=== PATIENT | female | born 1945 | race Caucasian/White ===

== ENCOUNTER 2020-12-02 06:51 | Outpatient (REF) | payer MEDICARE, SELFPAY ==
[2020-12-02 07:28] LABS: Hematocrit 43.2 % (37-47); Hemoglobin 14.8 g/dl (12.0-16.0); Mean Corpuscular HGB Conc 34.3 g/dl (31.0-35.0); Mean Corpuscular Hemoglobin 33.3 pg (27.0-33.0); Mean Corpuscular Volume 97.1 fL (80-98); Mean Platelet Volume 10.4 fL (9.4-12.3); Platelet Count 238 X10*3/uL (160-400); Red Blood Count 4.45 X10*6/uL (4.20-5.50); Red Cell Distribution Width 12.5 % (11.0-16.0); White Blood Count 5.8 X10*3/uL (4.8-10.8)
[2020-12-02 08:54] LABS: Alanine Aminotransferase 17 U/L (0-31); Albumin Level 4.8 g/dL (3.5-5.0); Alkaline Phosphatase 67 U/L (39-117); Anion Gap 15 (12-20); Aspartate Amino Transferase 23 U/L (5-31); Bilirubin Total 0.6 mg/dL (0.0-1.0); Blood Urea Nitrogen 6 mg/dL (9-16); Calcium 9.3 mg/dL (8.4-10.2); Carbon Dioxide 29 mmol/L (22-29); Chloride 99 mmol/L (96-108); Cholesterol 247 mg/dL; Estimated Glomerular Filt Rate > 60; Glucose Fasting 84 mg/dL (60-99); HDL Cholesterol 101 mg/dL; LDL Cholesterol Calculated 127 mg/dl; Potassium 4.1 mmol/l (3.3-5.1); Sodium 139 mmol/L (135-145); Total Protein 7.1 g/dL (6.5-8.0); Triglycerides 96 mg/dL
[2020-12-02 09:00] LABS: TSH reflex Free T4 3.61 mIU/mL (0.32-4.0)
== END 2020-12-02 06:52 | disposition home or self-care (01) ==
LOC: HO.LAB 06:51
PROVIDERS: Visit Provider Physician Assistant
DX: I10 Essential (primary) hypertension (principal); Z13.29 Encounter for screening for other suspected endocrine disorder; Z13.220 Encounter for screening for lipoid disorders; Z13.1 Encounter for screening for diabetes mellitus
CPT/HCPCS: 36415; 80053; 80061; 84443; 85027

== ENCOUNTER 2020-12-29 08:28 | Outpatient (REF) | payer MEDICARE, SELFPAY ==
--- NOTE | 2020-12-29 | MM_ITS ---
EXAMINATION: MM SCREENING DIGITAL BREAST TOMOSYNTHESIS, BILATERAL CLINICAL INFORMATION: Screening. Asymptomatic. The lifetime risk of breast cancer based on the Tyrer-Cuzick Model is 2.8%. COMPARISON: Mammography: December 26, 2019 and studies dating back to May 21, 2010 TECHNIQUE: Digital breast tomosynthesis is performed in both the craniocaudal and mediolateral oblique views along with computer-aided detection (CAD). Synthesized 2D images are generated from the tomosynthesis. FINDINGS: The breasts are extremely dense, which lowers the sensitivity of mammography (ACR BI-RADS breast composition Category d). There are no significant masses, abnormal calcifications, or other abnormalities. MM/MM tomosynthesis screening BI IMPRESSION: There are no significant changes from prior study. ASSESSMENT: BI-RADS 1: Negative RECOMMENDATION: Routine annual mammography screening. This patient's information was entered into a reminder system with a target due date for their next mammogram.
== END 2020-12-29 08:29 | disposition home or self-care (01) ==
LOC: HO.MAMMO 08:28
PROVIDERS: PCP Physician Assistant; Visit Provider Physician Assistant
DX: Z12.31 Encounter for screening mammogram for malignant neoplasm of breast (principal)
CPT/HCPCS: 77063; 77067

== ENCOUNTER 2021-01-08 06:58 | Outpatient (REF) | payer MEDICARE, SELFPAY ==
[2021-01-08 08:46] LABS: Alanine Aminotransferase 13 U/L (0-31); Albumin Level 4.5 g/dL (3.5-5.0); Alkaline Phosphatase 59 U/L (39-117); Anion Gap 13 (12-20); Aspartate Amino Transferase 18 U/L (5-31); Bilirubin Total 0.9 mg/dL (0.0-1.0); Blood Urea Nitrogen 9 mg/dL (9-16); Calcium 9.3 mg/dL (8.4-10.2); Carbon Dioxide 30 mmol/L (22-29); Chloride 101 mmol/L (96-108); Cholesterol 258 mg/dL; Estimated Glomerular Filt Rate > 60; Glucose Fasting 87 mg/dL (60-99); HDL Cholesterol 87 mg/dL; LDL Cholesterol Calculated 158 mg/dl; Potassium 4.6 mmol/L (3.3-5.1); Sodium 139 mmol/L (135-145); Total Protein 6.6 g/dL (6.5-8.0); Triglycerides 69 mg/dL
== END 2021-01-08 06:59 | disposition home or self-care (01) ==
LOC: HO.LAB 06:58
PROVIDERS: Visit Provider Physician Assistant
DX: E78.5 Hyperlipidemia, unspecified (principal)
CPT/HCPCS: 36415; 80053; 80061

== ENCOUNTER → 2021-01-29 08:56 | Outpatient (REF) | payer MEDICARE, SELFPAY ==
--- NOTE | 2021-01-29 09:01 | CA_ITS ---
Acquisition Time: 2021-01-29 09:13:23 Total Exercise Time: 00:01:23 Test Indications: CP Medications: SEE CHART Protocol: BASIL Max HR: 151 BPM 104% of Pred: 144 BPM Max BP: 164/098 mmHG Max Work Load: 3.4 METS Pt has LBBB at baseline , no EKG for 20 years or so to compare. Pt exercised for 1 min 23 sec and her HR went up to 151, test stopped. Neg. for anginal sx. Will call PCP and recommend Lexiscan, and ECHO. Pt's HR stayed in 100's and 90's will recommend bata-sharyn. Referred By: Sabino Ro Overread By:
== END ==
LOC: HO.CARD 08:56
PROVIDERS: PCP Physician Assistant; Visit Provider Physician Assistant
DX: R07.89 Other chest pain (principal)
CPT/HCPCS: 93016; 93017; 93018

== ENCOUNTER → 2021-02-24 07:45 | Outpatient (REF) | payer MEDICARE, SELFPAY ==
--- NOTE | ~2021-02-24 | NM_ITS ---
Lexiscan Myocardial perfusion study Indication: Abnormal EKG, assess for coronary disease and ischemia Technique: The patient was brought in for a Lexiscan perfusion study on 02/24/2021 and was injected 0.4 mg of Lexiscan intravenously. Within a minute of this injection 25 mCi of sestamibi was given intravenously. Images were obtained using the SPECT gamma camera interlaced with the gating device. Images were obtained in supine position. Resting perfusion study was performed on 02/25/2021. Patient was administered 31 mCi of sestamibi intravenously at rest. Images were then obtained in supine position. Total DLP 66mGy-cm. Images were processed with the software and compared side to side in short axis, horizontal long axis and vertical long axis views. Findings: Raw acquisition was reviewed. The stress perfusion study showed no significant perfusion abnormality. With CT attenuation correction, there is diminished tracer uptake in the distal part of septum that is most likely artifactual. The gated study shows normal LV systolic function with calculated LVEF of 67%. LV cavity is normal in size. The gated study shows possible mild septal dyskinesis from left bundle branch block, but otherwise unremarkable. Resting study shows diminished tracer uptake in the mid to distal anterior septum. With CT attenuation correction, there is diminished uptake towards mid to distal septum and adjacent anterior septum possibly artifactual versus related to left bundle branch block. Gating at rest reveals ejection fraction at 67%. The findings are consistent with normal myocardial perfusion. NM/NM jun perf SPECT rest & str Impression: 1. Myocardial perfusion imaging study shows normal myocardial perfusion. No evidence of any ischemia or infarction. 2. Gated LVEF is 67% during stress and rest. 3. Transient ischemic dilatation not present. EKG component of the test reported separately.
--- NOTE | 2021-02-24 07:48 | CA_ITS ---
Acquisition Time: 2021-02-24 08:11:19 Total Exercise Time: 00:02:00 Test Indications: Abnormal ECG Medications: AMLODIPINE VIT D ZETIA SIMVASTATIN Protocol: LEXISCAN Max HR: 133 BPM 92% of Pred: 144 BPM Max BP: 152/082 mmHG Max Work Load: 1.0 METS Pharmacological stress test using Lexiscan while lying down. Pt tolerated well, HR up and staying up, reversed with Aminophyline 75 mg IV. EKG with LBBB no arrhythmias. non-diagnostic for ischemia. Nuclear images to follow. Normotensive response to test. Test reviewed with Dr. Schneider. Referred By: Sabino Ro Overread By: Cherie Contreras NP
== END ==
LOC: HO.CARD 07:45
PROVIDERS: Visit Provider Physician Assistant
DX: R94.39 Abnormal result of other cardiovascular function study (principal); R07.9 Chest pain, unspecified; I44.7 Left bundle-branch block, unspecified
CPT/HCPCS: 78452; 93017; A9500; J0280; J2785

== ENCOUNTER → 2021-03-24 08:44 | Outpatient (BNVA) | payer MEDICARE, SELFPAY | PROVIDERS: PCP Physician Assistant; Visit Provider Internal Medicine | DX: I44.7 Left bundle-branch block, unspecified (principal); I10 Essential (primary) hypertension; R00.0 Tachycardia, unspecified | CPT/HCPCS: 93005; 99202 ==

== ENCOUNTER → 2021-04-06 10:00 | Outpatient (REF) | payer MEDICARE, SELFPAY ==
--- NOTE | 2021-04-06 15:30 | ECG_ITS ---
Hook-up date: 2021-04-06 10:47:00 Duration: 26:26:00 Test Indications: UNSPEC. TACHYCARDIA Medications: 428861 QRS complexes 2 Ventricular ectopics which represent <1 % of total QRS comp. 47 Supraventricular ectopics which represent <1 % of total QRS comp. * Paced QRS complexs which represent % of total QRS comp. VENTRICULAR ECTOPY 2 Isolated 0 Bigeminal Cycles 0 Couplets 0 Runs 0 Beats in Runs * Beats LONGEST at * BPM at :: -- * Beats FASTEST at * BPM at :: -- SUPRAVENTRICULAR ECTOPY 27 Isolated 0 Couplets 3 Runs 20 Beats in Runs 10 Beats LONGEST at 158 BPM at 18:34:42 2021-04-06 7 Beats FASTEST at 175 BPM at 22:54:56 2021-04-06 HEART RATES 66 MIN at 05:53:36 2021-04-07 87 AVG 138 MAX at 16:33:00 2021-04-06 LONGEST RR 0.9520 secs at 05:53:34 2021-04-07 S-T LEVELS Channel 1 - 128 mm at 10:47:00 2021-04-06 - 128 mm at 10:47:00 2021-04-06 Channel 2 - 128 mm at 10:47:00 2021-04-06 - 128 mm at 10:47:00 2021-04-06 Channel 3 - 128 mm at 03:00:61 -- - 128 mm at 03:00:61 Basic rhythm Normal sinus rhythm No long pause or profound bradycardia Baseline BBB Rare Premature atrial complexes 2 shirt runs of SVT, 7 and 10 beats. No diary submitted Referred By: Johnathan Schneider Overread By: LAWRENCE RODRIGES MD
== END ==
LOC: HO.CARD 10:00
PROVIDERS: PCP Physician Assistant; Visit Provider Internal Medicine
DX: R00.0 Tachycardia, unspecified (principal)
CPT/HCPCS: 93226

== ENCOUNTER → 2021-05-12 13:42 | Outpatient (REF) | payer MEDICARE, SELFPAY ==
--- NOTE | 2021-05-12 13:45 | CA_ITS ---
Transthoracic Echocardiogram Patient (Last, First, Middle): Antonieta Ulrich Jo Gender: Female Date of : 1945 Age: 75 Procedure Date: 05/12/2021 Procedure Type: Transthoracic Echocardiogram Location: OP Height: 160.02 cm Weight: 65.32 kg BSA: 1.68 m2 Heart Rate: bpm BP: 137 / 70 mmHg Shaper Operator: DSG Referring MD: Johnathan Schneider MD Symptoms: I44.7 - Left bundle-branch block, unspecified Study Quality: Fair ECG Rhythm: Sinus Conclusions: - The left ventricular systolic function is mildly decreased. The visually estimated ejection fraction is between 45-50%. - There is mild calcification of the aortic valve. - There is mild mitral annular calcification. - There is mild tricuspid valve regurgitation. Findings Left Ventricle Normal left ventricular cavity size. The left ventricular systolic function is mildly decreased. The visually estimated ejection fraction is between 45 50%. There is paradoxical septal motion consistent with a left bundle branch block. E/E prime ratio is between 8 and 15 consistent with indeterminate filling pressures. Evidence suggests grade I (mild) diastolic dysfunction. Right Ventricle Normal right ventricular cavity size and systolic function. Atria Both atria are normal in size. Aortic Valve There is a normal trileaflet aortic valve. There is mild calcification of the aortic valve. There is no aortic valve stenosis. There is no aortic valve regurgitation. Mitral Valve There is mild mitral annular calcification. There is trace mitral valve regurgitation. There is no mitral valve stenosis. Pulmonic Valve The pulmonic valve was not well visualized. Tricuspid Valve Normal tricuspid valve structure. There is mild tricuspid valve regurgitation. The pulmonary artery systolic pressure is normal. Great Vessels The asc aorta is normal in size. Venous The inferior vena cava is normal in size and collapses greater than 50% with inspiration. Pericardium/Pleural There is no evidence of pericardial effusion. Prior Study Comparison No significant change compared to prior study dated: 09/06/2005. Slight decrease in LVEF. Measurements 2D Linear Measurements IVSd: 1.07 0.6-0.9/0.6-1.0 cm LVIDd: 4.78 3.9-5.3/4.2-5.9 cm LVIDd Index: 2.85 2.4-3.2/2.2-3.1 cm/m2 LVIDs: 3.33 2.0-3.6 cm LVPWd: 0.99 0.7-1.1 cm Ao Root: 2.90 2.1-3.5 cm LA Diam: 3.40 2.7-3.8/3.0-4.0 cm LAIDs Index: 2.02 1.5-2.3 cm/m2 LV Mass: 219.23 67-162/88-224 g LV Mass Index: 130.49 43-95/49-115 g/m2 LVOT Diam: 2.00 3.0+(-)1.3 cm 2D Systolic Function EF 4C: 59.00 >55% EF 2C: 52.70 >55% Mitral Valve MV Pk E: 0.69 MV PK A: 1.07 MV Decel Time: 173.00 E/A: 0.60 E'Lateral: 5.66 E'Medial: 4.24 E/E' Med: 16.20 E/E' Lat: 12.10 PHT: 51.00 MVA PHT: 4.31 Decel [place]: 3.96 Aortic Valve AoV Pk Eulalio: 1.18 AoV Pk Grad: 6.00 LVOT LVOT Pk Eulalio: 0.91 LVOT Mn Eulalio: 0.59 LVOT VTI: 0.19 LVOT Pk Grad: 3.00 LVOT Mn Grad: 2.00 LVOT Diam: 2.00 LVOT Area: 3.14 Diastolic Function MV Pk E: 0.69 MV Pk A: 1.07 E/A: 0.60 E'Medial: 4.24 E/E' Med: 16.20 E' Laterial: 5.66 E/E' Lat: 12.10 Tricuspid Valve TR Pk Eulalio: 2.33 TR Pk Grad: 22.00 RA Press: 3.00 RVSP: 25.00 Great Vessels Aorta Ao Root-2D: 2.90 2.0-3.7 cm Ao Asc: 3.50 2.1-3.4 cm Updated in Other Vendor System with Status of Final Johnathan Schneider MD electronically signed on 05/13/2021 4:37:15 PM with status of Final
== END ==
LOC: HO.CARD 13:42
PROVIDERS: Visit Provider Internal Medicine
DX: I44.7 Left bundle-branch block, unspecified (principal)
CPT/HCPCS: 93306

== ENCOUNTER → 2021-05-18 10:36 | Outpatient (BNVA) | payer MEDICARE, SELFPAY | PROVIDERS: PCP Physician Assistant; Referring Provider Physician Assistant; Visit Provider Internal Medicine | DX: I44.7 Left bundle-branch block, unspecified (principal); I42.8 Other cardiomyopathies; I10 Essential (primary) hypertension; R00.0 Tachycardia, unspecified | CPT/HCPCS: 99212 ==

== ENCOUNTER 2021-07-21 06:33 | Outpatient (REF) | payer MEDICARE, SELFPAY ==
[2021-07-21 08:25] LABS: Alanine Aminotransferase 25 U/L (0-31); Albumin Level 4.5 g/dL (3.5-5.0); Alkaline Phosphatase 65 U/L (39-117); Anion Gap 15 (12-20); Aspartate Amino Transferase 26 U/L (5-31); Bilirubin Total 0.7 mg/dL (0.0-1.0); Blood Urea Nitrogen 5 mg/dL (9-16); Calcium 9.1 mg/dL (8.4-10.2); Carbon Dioxide 26 mmol/L (22-29); Chloride 103 mmol/L (96-108); Cholesterol 156 mg/dL; Estimated Glomerular Filt Rate > 60; Glucose Fasting 87 mg/dL (60-99); HDL Cholesterol 81 mg/dL; LDL Cholesterol Calculated 65 mg/dl; Potassium 4.4 mmol/L (3.3-5.1); Sodium 140 mmol/L (135-145); Total Protein 6.6 g/dL (6.5-8.0); Triglycerides 53 mg/dL
[2021-07-21 09:39] LABS: Creatinine Urine 65.36 mg/dL
== END 2021-07-21 06:34 | disposition home or self-care (01) ==
LOC: HO.LAB 06:33
PROVIDERS: PCP Physician Assistant; Visit Provider Physician Assistant
DX: I10 Essential (primary) hypertension (principal)
CPT/HCPCS: 36415; 80053; 80061; 82043; 84443

== ENCOUNTER 2021-12-02 06:47 | Outpatient (REF) | payer MEDICARE, SELFPAY ==
[2021-12-02 07:56] LABS: Hematocrit 41.7 % (37.0-47.0); Hemoglobin 14.3 g/dl (12.0-16.0); Mean Corpuscular HGB Conc 34.3 g/dl (31.0-35.0); Mean Corpuscular Hemoglobin 33.5 pg (27.0-33.0); Mean Corpuscular Volume 97.7 fL (80.0-98.0); Mean Platelet Volume 10.1 fL (9.4-12.3); Platelet Count 223 X10*3/uL (160-400); Red Blood Count 4.27 X10*6/uL (4.20-5.50); Red Cell Distribution Width 12.8 % (11.0-16.0); White Blood Count 5.5 X10*3/uL (4.8-10.8)
[2021-12-02 08:15] LABS: Alanine Aminotransferase 19 U/L (0-31); Albumin Level 4.7 g/dL (3.5-5.0); Alkaline Phosphatase 63 U/L (39-117); Anion Gap 13 (12-20); Aspartate Amino Transferase 20 U/L (5-31); Bilirubin Total 0.7 mg/dL (0.0-1.0); Blood Urea Nitrogen 9 mg/dL (9-16); Calcium 9.7 mg/dL (8.4-10.2); Carbon Dioxide 29 mmol/L (22-29); Chloride 101 mmol/L (96-108); Cholesterol 199 mg/dL; Estimated Glomerular Filt Rate > 60; Glucose Fasting 82 mg/dL (60-99); HDL Cholesterol 101 mg/dL; LDL Cholesterol Calculated 87 mg/dl; Sodium 138 mmol/L (135-145); Total Protein 6.9 g/dL (6.5-8.0); Triglycerides 58 mg/dL
[2021-12-02 08:36] LABS: TSH reflex Free T4 3.63 uIU/mL (0.32-4.0)
[2021-12-02 09:05] LABS: Creatinine Urine 41.16 mg/dL; Microalbumin Urine < 5.0 mg/L
== END 2021-12-02 06:48 | disposition home or self-care (01) ==
LOC: HO.LAB 06:47
PROVIDERS: PCP Physician Assistant; Visit Provider Physician Assistant
DX: I10 Essential (primary) hypertension (principal); E78.2 Mixed hyperlipidemia; Z13.29 Encounter for screening for other suspected endocrine disorder; Z13.220 Encounter for screening for lipoid disorders; Z13.1 Encounter for screening for diabetes mellitus
CPT/HCPCS: 36415; 80053; 80061; 82043; 84443; 85027

== ENCOUNTER 2022-01-06 09:36 | Outpatient (REF) | payer MEDICARE, SELFPAY ==
--- NOTE | ~2022-01-06 | MM_ITS ---
EXAMINATION: MM SCREENING DIGITAL BREAST TOMOSYNTHESIS, BILATERAL CLINICAL INFORMATION: Screening. Asymptomatic. The lifetime risk of breast cancer based on the Tyrer-Cuzick Model is 3%. COMPARISON: Mammography: 12/29/2020, 12/26/2019, 01/10/2018 TECHNIQUE: Digital breast tomosynthesis is performed in both the craniocaudal and mediolateral oblique views along with computer-aided detection (CAD). Synthesized 2D images are generated from the tomosynthesis. FINDINGS: The breasts are heterogeneously dense, which may obscure small masses (ACR BI-RADS breast composition Category c). There are no significant masses, abnormal calcifications, or other abnormalities. There is no developing density or architectural abnormality. There is fibronodular parenchymal pattern similar to prior studies. The axilla and skin contours are unremarkable. No significant changes. MM/MM tomosynthesis screening BI IMPRESSION: No mammographic evidence of malignancy. ASSESSMENT: BI-RADS 1: Negative RECOMMENDATION: Routine annual mammography screening. This patient's information was entered into a reminder system with a target due date for their next mammogram.
== END 2022-01-06 09:37 | disposition home or self-care (01) ==
LOC: HO.MAMMO 09:36
PROVIDERS: Visit Provider Physician Assistant
DX: Z12.31 Encounter for screening mammogram for malignant neoplasm of breast (principal)
CPT/HCPCS: 77063; 77067

== ENCOUNTER → 2022-04-28 09:05 | Outpatient (REF) | payer MEDICARE, SELFPAY ==
--- NOTE | 2022-04-28 09:10 | CA_ITS ---
Transthoracic Echocardiogram Patient (Last, First, Middle): Antonieta Ulrich Jo Gender: Female Date of : 1945 Age: 76 Procedure Date: 04/28/2022 Procedure Type: Transthoracic Echocardiogram Location: OP Height: 160.02 cm Weight: 65.77 kg BSA: 1.69 m2 Heart Rate: 84 bpm BP: 132 / 70 mmHg Combination Window Installer: SB Referring MD: Johnathan Schneider MD Client Support Associate: Adrian Kurtz MD Symptoms: I42.8 - Other cardiomyopathies Study Quality: Fair/Contrast ECG Rhythm: Sinus Conclusions: - 1. Low normal LV systolic function with impaired relaxation filling pattern 2. Normal cardiac valvular Dopplers 3. No gross pericardial effusion Findings Procedure Information Contrast agent, definity, is being given per protocol without apparent complications. Left Ventricle Normal left ventricular cavity size. There is normal left ventricular wall thickness. The left ventricular systolic function is low normal. The visually estimated ejection fraction is between 50-55%. There is paradoxical septal motion consistent with a left bundle branch block. Spectral Doppler is indicative of an impaired relaxation filling pattern. E/E prime ratio is between 8 and 15 consistent with indeterminate filling pressures. Wall Motion Rest Echo Findings The basal inferior and basal inferoseptal segments are hypokinetic. All other scored wall segments showed normal motion. Right Ventricle Normal right ventricular cavity size and systolic function. Atria The left atrium is normal in size. Interatrial shunt cannot be excluded. The right atrium is normal in size. Aortic Valve There is mild calcification of the aortic valve. There is mild thickening of the aortic valve. There is no aortic valve stenosis. There is no aortic valve regurgitation. Mitral Valve There is mild anterior and posterior mitral leaflet thickening. There is mild mitral annular calcification. There is trace mitral valve regurgitation. There is no mitral valve stenosis. Pulmonic Valve The pulmonic valve was not well visualized. Tricuspid Valve Likely normal tricuspid valve structure and function. Tricuspid regurgitation envelope is inadequate for calculation of right ventricular systolic pressure. Normal right atrial pressure. Great Vessels All visible segments of the aorta are normal in size. The pulmonary artery was not well visualized. Venous The inferior vena cava is normal in size and collapses greater than 50% with inspiration. Pericardium/Pleural There is no evidence of pericardial effusion. Prior Study Comparison Changes noted compared to prior study dated: 05/12/2021. LV systolic function has marginally improved Measurements 2D Linear Measurements IVSd: 1.12 0.6-0.9/0.6-1.0 cm LVIDd: 4.99 3.9-5.3/4.2-5.9 cm LVIDd Index: 2.95 2.4-3.2/2.2-3.1 cm/m2 LVIDs: 3.27 2.0-3.6 cm LVPWd: 0.67 0.7-1.1 cm LA Diam: 3.00 2.7-3.8/3.0-4.0 cm LAIDs Index: 1.78 1.5-2.3 cm/m2 LV Mass: 194.77 67-162/88-224 g LV Mass Index: 115.25 43-95/49-115 g/m2 LVOT Diam: 2.00 3.0+(-)1.3 cm 2D Systolic Function EF 4C: 50.20 >55% EF 2C: 56.60 >55% Mitral Valve MV Pk E: 0.66 MV PK A: 1.25 MV Decel Time: 102.00 E/A: 0.50 E'Medial: 3.70 E/E' Med: 17.90 PHT: 30.00 MVA PHT: 7.33 Decel [place]: 6.47 Aortic Valve AoV Pk Eulalio: 1.03 AoV Mn Eulalio: 0.79 AoV VTI: 0.21 AoV Pk Grad: 4.00 Aov Mn Grad: 3.00 KEI Cont.VTI: 2.68 LVOT LVOT Pk Eulalio: 0.92 LVOT Mn Eulalio: 0.69 LVOT VTI: 0.18 LVOT Pk Grad: 3.00 LVOT Mn Grad: 2.00 LVOT Diam: 2.00 LVOT Area: 3.14 Diastolic Function MV Pk E: 0.66 MV Pk A: 1.25 E/A: 0.50 E'Medial: 3.70 E/E' Med: 17.90 Right Ventricle TAPSE (mm): 18.30 TVS' Eulalio: 13.50 Tricuspid Valve RA Press: 3.00 Great Vessels Aorta Sinus of Valsalva: 3.16 2.0-3.[address] Ridge: 2.86 1.7-3.4 cm Ao Asc: 3.50 2.1-3.4 cm Ao Arch: 2.70 Pulmonary Valve PV Pk Eulalio: 1.07 Peak PV Grad: 5.00 Updated in Other Vendor System with Status of Final Adrian Kurtz MD electronically signed on 04/29/2022 4:10:07 PM with status of Final
== END ==
LOC: HO.CARD 09:05
PROVIDERS: PCP Physician Assistant; Visit Provider Internal Medicine
DX: I42.8 Other cardiomyopathies (principal)
CPT/HCPCS: 93306; Q9957

== ENCOUNTER → 2022-05-13 09:12 | Outpatient (BNVA) | payer MEDICARE, SELFPAY | PROVIDERS: PCP Physician Assistant; Referring Provider Physician Assistant; Visit Provider Internal Medicine | DX: I44.7 Left bundle-branch block, unspecified (principal); I42.8 Other cardiomyopathies; I10 Essential (primary) hypertension; R00.0 Tachycardia, unspecified; F10.10 Alcohol abuse, uncomplicated; Z79.899 Other long term (current) drug therapy | CPT/HCPCS: 93005; 99212 ==

== ENCOUNTER 2022-12-13 06:59 | Outpatient (REF) | payer MEDICARE, SELFPAY ==
[2022-12-13 07:12] LABS: MANUAL DIFF FLAG NO
[2022-12-13 08:26] LABS: Basophils Percent Auto 0.7 % (0-2); Eosinophils Absolute Auto 0.1 X10*3/uL (0.0-0.4); Eosinophils Percent Auto 2.2 % (0-4); Hematocrit 43.1 % (37.0-47.0); Hemoglobin 14.7 g/dl (12.0-16.0); Imm Gran Abs Auto 0.01 X10*3/uL (0.00-0.03); Imm Gran Pct Auto 0.2 % (0.0-0.4); Lymphocytes Absolute Auto 1.8 X10*3/uL (1.2-4.9); Lymphocytes Percent Auto 31.7 % (20-40); Mean Corpuscular HGB Conc 34.1 g/dl (31.0-35.0); Mean Corpuscular Hemoglobin 33.3 pg (27.0-33.0); Mean Corpuscular Volume 97.7 fL (80.0-98.0); Mean Platelet Volume 10.4 fL (9.4-12.3); Monocytes Absolute Auto 0.5 X10*3/uL (0.1-1.2); Monocytes Percent Auto 9.7 % (2-11); Neutrophils Absolute Auto 3.1 x10*3/uL (2.0-8.3); Neutrophils Percent Auto 55.5 % (45-73); Platelet Count 210 X10*3/uL (160-400); Red Blood Count 4.41 X10*6/uL (4.20-5.50); Red Cell Distribution Width 12.6 % (11.0-16.0); White Blood Count 5.6 X10*3/uL (4.8-10.8)
[2022-12-13 08:46] LABS: Alanine Aminotransferase 18 U/L (0-31); Albumin Level 4.5 g/dL (3.5-5.0); Alkaline Phosphatase 68 U/L (39-117); Anion Gap 15 (12-20); Aspartate Amino Transferase 22 U/L (5-31); Blood Urea Nitrogen 9 mg/dL (9-16); Calcium 9.5 mg/dL (8.4-10.2); Carbon Dioxide 26 mmol/L (22-29); Chloride 103 mmol/L (96-108); Cholesterol 192 mg/dL; Estimated Glomerular Filt Rate > 60; Glucose Fasting 84 mg/dL (60-99); HDL Cholesterol 79 mg/dL; LDL Cholesterol Calculated 100 mg/dl; Potassium 4.3 mmol/L (3.3-5.1); Sodium 140 mmol/L (135-145); Total Protein 6.6 g/dL (6.5-8.0); Triglycerides 69 mg/dL
[2022-12-13 09:08] LABS: TSH reflex Free T4 3.98 uIU/mL (0.32-4.0); Vitamin D 25-OH Total 49.7 ng/mL (>30)
[2022-12-13 09:13] LABS: Folate 12.5 ng/mL (> or = 4.0); Vitamin B12 1146 pg/mL (200-900)
== END 2022-12-13 07:00 | disposition home or self-care (01) ==
LOC: HO.LAB 06:59
PROVIDERS: PCP Physician Assistant; Visit Provider Nurse Practitioner Family
DX: Z13.29 Encounter for screening for other suspected endocrine disorder (principal); I10 Essential (primary) hypertension; E78.5 Hyperlipidemia, unspecified
CPT/HCPCS: 36415; 80053; 80061; 82306; 82607; 82746; 84443; 85025

== ENCOUNTER 2023-01-12 08:55 | Outpatient (REF) | payer MEDICARE, SELFPAY ==
--- NOTE | ~2023-01-12 | MM_ITS ---
EXAMINATION: MM SCREENING DIGITAL BREAST TOMOSYNTHESIS, BILATERAL CLINICAL INFORMATION: Screening. Asymptomatic. The lifetime risk of breast cancer based on the Tyrer-Cuzick Model is 3%. COMPARISON: Mammography: 01/06/2022, 12/29/2020, 12/26/2019 TECHNIQUE: Digital breast tomosynthesis is performed in both the craniocaudal and mediolateral oblique views along with computer-aided detection (CAD). Synthesized 2D images are generated from the tomosynthesis. FINDINGS: The breasts are heterogeneously dense, which may obscure small masses (ACR BI-RADS breast composition Category c). There is a fibronodular parenchymal pattern similar to prior studies. No developing density or interval architectural abnormality or abnormal calcifications. There are some incidental low lying left axillary nodes again noted on MLO view. The bilateral axilla and skin contours are unremarkable. MM/MM tomosynthesis screening BI IMPRESSION: No mammographic evidence of malignancy. ASSESSMENT: BI-RADS 1: Negative RECOMMENDATION: Routine annual mammography screening. This patient's information was entered into a reminder system with a target due date for their next mammogram.
== END 2023-01-12 08:56 | disposition home or self-care (01) ==
LOC: HO.MAMMO 08:55
PROVIDERS: PCP Physician Assistant; Visit Provider Physician Assistant
DX: Z12.31 Encounter for screening mammogram for malignant neoplasm of breast (principal)
CPT/HCPCS: 77063; 77067

== ENCOUNTER → 2023-05-26 09:47 | Outpatient (BNVA) | payer MEDICARE, SELFPAY | PROVIDERS: PCP Physician Assistant; Referring Provider Physician Assistant; Visit Provider Internal Medicine | DX: I44.7 Left bundle-branch block, unspecified (principal); I10 Essential (primary) hypertension; I42.8 Other cardiomyopathies; R00.0 Tachycardia, unspecified; Z78.9 Other specified health status | CPT/HCPCS: 93005; 99212 ==

== ENCOUNTER → 2023-06-21 07:33 | Outpatient (REF) | payer MEDICARE, SELFPAY ==
--- NOTE | 2023-06-21 07:35 | CA_ITS ---
Transthoracic Echocardiogram Patient (Last, First, Middle): Antonieta Ulrich Jo Gender: Female Date of : 1945 Age: 77 Procedure Date: 06/21/2023 Procedure Type: Transthoracic Echocardiogram Location: OP Height: 160.02 cm Weight: 67.13 kg BSA: 1.70 m2 Heart Rate: bpm BP: 132 / 90 mmHg Dock Manager: LEONARD Referring MD: Johnathan Schneider MD Digital Advertising Analyst: Adrian Kurtz MD Symptoms: I44.7 - Left bundle-branch block, unspecified Study Quality: Fair ECG Rhythm: Sinus Conclusions: - 1. Low normal LV ejection fraction at 50-55% with impaired relaxation filling pattern 2. Normal cardiac valvular Dopplers 3. Mildly dilated ascending aorta at 3.8 cm 4. Normal RV systolic pressure 5. No gross pericardial effusion Findings Left Ventricle Normal left ventricular cavity size. There is normal left ventricular wall thickness. The left ventricular systolic function is low normal. The visually estimated ejection fraction is between 50-55%. Regional wall motion abnormalities can not be excluded due to suboptimal endocardial definition. There is paradoxical septal motion consistent with a left bundle branch block. Spectral Doppler is indicative of an impaired relaxation filling pattern. E/E prime ratio is between 8 and 15 consistent with indeterminate filling pressures. Right Ventricle Normal right ventricular cavity size and systolic function. Atria The left atrium is normal in size. Interatrial shunt cannot be excluded. The right atrium is normal in size. Aortic Valve There is mild calcification of the aortic valve. There is no aortic valve stenosis. There is no aortic valve regurgitation. Mitral Valve There is mild anterior and posterior mitral leaflet thickening. There is mild mitral annular calcification. There is trace mitral valve regurgitation. There is no mitral valve stenosis. Pulmonic Valve The pulmonic valve was not well visualized. Tricuspid Valve Likely normal tricuspid valve structure and function. There is trace tricuspid valve regurgitation. The right ventricular systolic pressure is normal. The right ventricular systolic pressure is 23 mmHg. Normal right atrial pressure. There is no evidence of pulmonary hypertension. Great Vessels The pulmonary artery was not well visualized. There is mild dilatation of the ascending aorta measuring 3.80 cm. Venous The inferior vena cava is normal in size and collapses greater than 50% with inspiration. Pericardium/Pleural There is no evidence of pericardial effusion. Measurements 2D Linear Measurements IVSd: 1.37 0.6-0.9/0.6-1.0 cm LVIDd: 4.23 3.9-5.3/4.2-5.9 cm LVIDd Index: 2.49 2.4-3.2/2.2-3.1 cm/m2 LVIDs: 2.90 2.0-3.6 cm LVPWd: 0.68 0.7-1.1 cm LA Diam: 3.30 2.7-3.8/3.0-4.0 cm LAIDs Index: 1.94 1.5-2.3 cm/m2 LV Mass: 179.36 67-162/88-224 g LV Mass Index: 105.50 43-95/49-115 g/m2 LVOT Diam: 2.10 3.0+(-)1.3 cm 2D Systolic Function EF 4C: 55.30 >55% EF 2C: 50.80 >55% EF BiP: 53.10 >55% Mitral Valve MV Pk E: 0.71 MV PK A: 1.15 MV Decel Time: 259.00 E/A: 0.60 E'Lateral: 4.90 E'Medial: 6.20 E/E' Med: 11.50 E/E' Lat: 14.50 PHT: 76.00 MVA PHT: 2.89 Decel [place]: 2.74 Aortic Valve AoV Pk Eulalio: 1.45 AoV Mn Eulalio: 1.04 AoV VTI: 0.30 AoV Pk Grad: 8.00 Aov Mn Grad: 5.00 KEI Cont.VTI: 2.38 LVOT LVOT Pk Eulalio: 0.92 LVOT Mn Eulalio: 0.67 LVOT VTI: 0.21 LVOT Pk Grad: 3.00 LVOT Mn Grad: 2.00 LVOT Diam: 2.10 LVOT Area: 3.46 Diastolic Function MV Pk E: 0.71 MV Pk A: 1.15 E/A: 0.60 E'Medial: 6.20 E/E' Med: 11.50 E' Laterial: 4.90 E/E' Lat: 14.50 Right Ventricle TAPSE (mm): 22.40 TVS' Eulalio: 12.50 Tricuspid Valve TR Pk Eulalio: 2.26 TR Pk Grad: 20.00 RA Press: 3.00 RVSP: 23.00 Great Vessels Aorta Sinus of Valsalva: 3.40 2.0-3.[address] Ridge: 2.43 1.7-3.4 cm Ao Asc: 3.80 2.1-3.4 cm Updated in Other Vendor System with Status of Final Adrian Kurtz MD electronically signed on 06/22/2023 12:23:11 PM with status of Final
== END ==
LOC: HO.CARD 07:33
PROVIDERS: Visit Provider Internal Medicine
DX: I44.7 Left bundle-branch block, unspecified (principal)
CPT/HCPCS: 93306

== ENCOUNTER → 2023-06-21 07:35 | Outpatient (BNV) | payer MEDICARE, SELFPAY | PROVIDERS: Visit Provider Internal Medicine Cardiovascular Disease | DX: I34.81 Nonrheumatic mitral (valve) annulus calcification (principal) | CPT/HCPCS: 93306 ==

== ENCOUNTER 2023-12-08 07:32 | Outpatient (REF) | payer MEDICARE, SELFPAY ==
[2023-12-08 09:08] LABS: Creatinine Urine 108.76 mg/dL; Microalbum/Creatinine Ratio Ur 6.4 ug/mg cr (<30)
[2023-12-08 09:10] LABS: Alanine Aminotransferase 16 U/L (0-31); Albumin Level 4.3 g/dL (3.5-5.0); Alkaline Phosphatase 56 U/L (39-117); Anion Gap 13 (12-20); Aspartate Amino Transferase 19 U/L (5-31); Bilirubin Total 0.6 mg/dL (0.0-1.0); Blood Urea Nitrogen 13 mg/dL (9-16); Calcium 9.3 mg/dL (8.4-10.2); Carbon Dioxide 27 mmol/L (22-29); Chloride 107 mmol/L (96-108); Cholesterol 180 mg/dL (<200); Estimated Glomerular Filt Rate > 60; Glucose Fasting 89 mg/dL (60-99); HDL Cholesterol 81 mg/dL (>40); LDL Cholesterol Calculated 88 mg/dL (<100); Potassium 4.4 mmol/L (3.3-5.1); Sodium 143 mmol/L (135-145); Total Protein 6.6 g/dL (6.5-8.0); Triglycerides 55 mg/dL (<150)
[2023-12-08 09:39] LABS: Folate 8.8 ng/mL (> or = 4.0); Vitamin B12 542 pg/mL (200-900)
[2023-12-10 09:10] LABS: CA-125 5 U/mL (<35)
== END 2023-12-08 07:33 | disposition home or self-care (01) ==
LOC: HO.LAB 07:32
PROVIDERS: PCP Physician Assistant; Visit Provider Physician Assistant
DX: I10 Essential (primary) hypertension (principal); E78.2 Mixed hyperlipidemia; E53.8 Deficiency of other specified B group vitamins; R74.8 Abnormal levels of other serum enzymes; Z12.73 Encounter for screening for malignant neoplasm of ovary
CPT/HCPCS: 36415; 80053; 80061; 82043; 82570; 82607; 82746; 86304

== ENCOUNTER 2023-12-12 11:09 | Outpatient (AMB) | payer MEDICARE, SELFPAY ==
[2023-12-12 11:19] VITALS: BP 136/84; PULSE 84; RESP 16; BMI 25.2
--- NOTE | 2023-12-12 11:19 | A.OFFPC_ITS ---
Vital Signs 12/12/23 11:19 Height 5 ft 4 in Weight 147 lb BMI 25.2 BP 136/84 Blood Pressure Location Lt brachial Position Sitting Respiration 16 Pulse 84 Pulse Source Palpation Intake Visit Reasons: PE Intake Note: Patient is here today for a physical. 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 Required: No Accompanied by: Self / Same As Patient Allergies sulfate Adverse Reaction (Unknown, Uncoded 12/12/23 11:49) skin irritant/rash Medication List - Last Reconciled 12/12/23 by Sabino Ro PA-C amlodipine 5 mg PO DAILY atorvastatin 10 mg PO DAILY cholecalciferol (vitamin D3) 25 mcg PO DAILY ezetimibe 10 mg PO DAILY lorazepam 0.5 mg PO DAILY PRN 14 days Tobacco use date assessed: 12/12/23 Fall risk assessment: No Falls in past year Last assessed Fall Risk: 12/12/23 Dental Screening Dental Screen Date: 12/12/23 Did you have a dental visit in the last 12 months?: Yes Did you have a dental problem in the last 6 months where you did not have access to dental care?: No Was dental information given to patient?: Patient has dentist HPI PE HPI Details Patient is a 77 year female here today for a physical.? Patient has a past medical history significant for hypertension left bundle-branch block ,? hyperlipidemia. .. Concern--> has been experiencing worsening urinary incontinence over last 10 years. She does use urinary incontinence pads. She often has to use the restroom urgently. She is now interested in treatment. .. Hypertension :? Blood pressure has been improved the addition of amlodipine. .. Hyperlipidemia:?.?Cholesterol Much improved since starting Statin therapy. Generalized anxiety disorder: Her is most of the trigger to her anxiety. She reports her anxiety is well controlled though on on occasion does have to take low-dose lorazepam for panic attacks. Colon cancer screening: UTd with colonoscopies. She has not interested in any further colon cancer screening Vaccines: : Up-to-date with COVID vaccine, tetanus vaccine, PFSH Medical History Essential hypertension HTN (hypertension) Surgical History Mallet finger of left hand History of D&C Family History Father Anxiety Hypertension Cancer Mother No problems noted. Brother No problems noted. Sister Leukemia Social History Housing: House Alcohol intake: current Alcohol intake frequency: 0-2 drinks per day Patient Tobacco Use Status: Never used Tobacco e-Cigarette/Vaping Use: Never Used Second Hand Smoke Exposure: No Current occupational status: retired Cognitive needs: No Hearing needs: No Vision needs: Yes Questionnaire PHQ-9 Over the last 2 weeks, how often have you been bothered by any of the following problems? 1. Little interest or pleasure in doing things: not at all 2. Feeling down, depressed, or hopeless: not at all 3. Trouble falling or staying asleep, or sleeping too much: not at all 4. Feeling tired or having little energy: not at all 5. Poor appetite or overeating: not at all 6. Feeling bad about yourself - or that you are a failure or have let yourself or your family down: not at all 7. Trouble concentrating on things, such as reading the newspaper or watching television: not at all 8. Moving or speaking so slowly that other people could have noticed. Or the opposite - being so fidgety or restless that you have been moving around a lot more than usual: not at all 9. Thoughts that you would be better off or of hurting yourself in some way: not at all Total score: 0 Depression Screening Interpretation: Negative Depression Screening Done: Yes 27190 - PHQ-9 Billing: Yes Source: Developed by Drs. Layo Bales, Vanda Dickerson, Tony Sanders and colleagues, with an educational dany from [employer]. Thrive Questionnaire Date Thrive assessed: 12/12/23 I am a: Patient What is your living situation today?: I have a steady place to live Within the past 12 months, did the food you bought not last and you didn't have the money to get more?: Never true Within the past 12 months, did you worry whether your food would run out before you got money to buy more?: Never true Do you have trouble paying for medicines?: No Do you have trouble getting transportation to medical appointments?: No Do you have trouble paying your heating and electricity bill?: No Do you have trouble taking care of your child, family member or friend?: No Do you have trouble with day-to-day activities such as bathing, preparing meals, shopping, managing finances, etc.?: No Are you currently unemployed and looking for a job?: No Are you interested in more education?: No Please select the resources that you would like help with: None AUDIT C Alcohol Use Questionnaire (AUDIT-C) 1. How often do you have a drink containing alcohol?: Monthly or less 2. How many drinks containing alcohol do you have on a typical day when you are drinking?: 1 or 2 3. How often do you have six or more drinks on one occasion?: Never Total Score: 1 Score Reviewed/Action Taken: No RONALD-7 AMB Questionnaire RONALD-7 Date RONALD - 7 assessed: 12/12/23 (pt taking medication for anxiety ) Feeling nervous, anxious, or on edge: 1 = Several days Not being able to stop or control worryin = Several days Worrying too much about different things: 0 = Not at all Trouble relaxin = Several days Being so restless that it is hard to sit still: 1 = Several days Becoming easily annoyed or irritable: 1 = Several days Feeling afraid as if something awful might happen: 0 = Not at all Total RONALD-7 score (0-4 normal; 5-9 mild; 10-14 moderate; 15-21 severe): 5 Source: Developed by Drs. Layo Balse, Vanda Dickerson, Tony Sanders and colleagues, with an educational dany from [employer]. RONALD-7 Assessment Billing RONALD-7 Assessment Tool: RONALD-7 Assessment 51227 Review of Systems Const Denies body aches, Denies chills, Denies excessive sweating, Denies fatigue, Denies fever(s) and Denies headache(s) Eyes Denies blurry vision ENT Denies dysphagia, Denies vertigo, Denies dizziness, Denies headache(s), Denies hearing loss and Denies tinnitus Card Denies chest pain, Denies chest pain with activity, Denies syncope, Denies irregular heart rhythm and Denies dyspnea Resp Denies chest congestion, Denies cough, Denies hemoptysis, Denies dyspnea and Denies wheezing GI Denies abdominal pain, Denies melena, Denies hematochezia, Denies coffee ground emesis, Denies dysphagia, Denies diarrhea, Denies nausea and Denies vomiting Denies urinary frequency, Denies dysuria, Denies urinary hesitancy and Denies urinary urgency Musc Denies arthralgias, Denies limited range of motion, Denies muscle cramps and Denies muscle weakness Skin/Breast Denies rash and Denies skin ulcer Neuro Denies Abnormal speech present, Denies confusion, Denies vertigo, Denies dizziness, Denies syncope, Denies headache(s), Denies memory loss and Denies seizure-like activity Psych Denies anxiety, Denies confusion, Denies depression, Denies memory loss, Denies panic attacks and Denies paranoia Endo Denies excessive sweating, Denies fatigue, Denies flushing, Denies polydipsia and Denies polyuria Aller/Immun Denies wheezing Physical exam (Primary Care) Vital Signs: Last Vital Signs Pulse 84 12/12/23 11:19 Resp 16 12/12/23 11:19 BP 136/84 12/12/23 11:19 BMI result Body Mass Index 25.2 Tobacco/Smoking Status: Tobacco use Status Tobacco use date assessed 12/12/23 12/12/23 11:31 Patient Tobacco Use Status Never used Tobacco 12/12/23 11:23 e-Cigarette/Vaping Use Never Used 12/12/23 11:23 PHQ-9: PHQ-9 Score PHQ-9: Total score 0 12/12/23 11:52 Depression Screening Interpretation: Negative Thrive Assessment: Date of Thrive Assessment Date Thrive assessed 12/12/23 12/12/23 11:31 Const General: cooperative, comfortable, no acute distress, alert and awake; No confusion Orientation/consciousness: oriented to person, oriented to place, patient oriented x3 and No confusion HENMT Head: Yes normocephalic Ears: external ears normal and TM's normal bilaterally Face and sinus: No sinus tenderness Mouth: Normal oral and palatal mucosa present and tongue normal Teeth and gingiva: dentition normal and gingiva normal Throat: Yes posterior oropharynx normal, Yes tonsils normal and Yes uvula midline Eyes Conjunctivae: conjunctivae normal Sclerae: sclerae normal Pupils: Equal, round and reactive pupils present EOM: EOMs intact bilaterally Direct Ophthalmoscopy: No no photophobia Neck Neck: Yes no lymphadenopathy, No tender and Yes no JVD Thyroid: Thyroid normal Carotids: no bruits Chest Chest palpation & inspection: no tenderness Resp Effort & Inspection: normal respiratory effort, no audible wheezes, not labored and no stridor Auscultation: no crackles, no rales, no rhonchi and no wheezes Cardio Jugular venous distension: no JVD Rate: regular rate, not bradycardic and not tachycardic Rhythm: regular rhythm Bruits: no carotid bruits Peripheral pulses: Peripheral pulses 2+ throughout GI Inspection: Yes normal to inspection, No abdominal wall ecchymosis and No visible herniation Palpation (GI): Soft to palpation, nontender, no guarding, not rigid and No hepatosplenomegaly present Auscultation: normoactive bowel sounds General: Yes no CVA tenderness Back/Spine/Pelvis Back: no CVA tenderness and No back tenderness Cervical Spine: cervical ROM normal Thoracic/Lumbar Spine: thoracic and lumbar spine normal to inspection, straight leg raise negative bilaterally, No thoraco-lumbar ROM limited and No lumbar spinal tenderness Skin Lesions: no lesions Rashes: no rashes Wounds: no wounds Neuro General: oriented to person, oriented to place, patient oriented x3, CN's II-XI intact bilaterally and No confusion Cranial nerves: Yes Equal, round and reactive pupils present and Yes Normal accommodation reflex present Cognition (Neuro): normal cognition Speech: No Abnormal speech present Gait exam (Neuro): Normal gait present Motor exam (neuro): 5/5 motor strength present throughout Extrem Right upper extremity: full ROM; no cyanosis Left upper extremity: full ROM; no cyanosis Right lower extremity: no edema Left lower extremity: no edema Psych Appearance: grossly normal Mental Status: mental status grossly normal Affect: normal affect Attitude: cooperative Thought process: Normal thought process present Assessment and Plan Assessment & Plan (1) Annual physical exam: Code(s): Z00.00 - Encounter for general adult medical examination without abnormal findings (2) HLD (hyperlipidemia): Code(s): E78.5 - Hyperlipidemia, unspecified Qualifiers: Hyperlipidemia type: mixed hyperlipidemia Qualified Code(s): E78.2 - Mixed hyperlipidemia Plan: Patient's cholesterol much improved with the consistent use of statin therapy. Goal LDL to be below 100. (3) Essential hypertension: Code(s): I10 - Essential (primary) hypertension Plan: Blood pressures today in office and at have been 110s to 130 systolic. Will continue her on her current dose of amlodipine 5 mg. Goal blood pressures to be below 140/90. (4) RONALD (generalized anxiety disorder): Code(s): F41.1 - Generalized anxiety disorder Plan: Patient's RONALD-7 score positive for mild anxiety. Anxiety has been existing condition for Antonieta. She does use lorazepam on a p.r.n. basis (5) Spastic bladder: Code(s): N32.89 - Other specified disorders of bladder Plan: Has been suffering with urinary incontinence which seems to be urge incontinence over the 10 years. She reports it has gotten slowly worse. She is interested in therapy and trying medication (6) NICM (nonischemic cardiomyopathy): Code(s): I42.8 - Other cardiomyopathies Plan: Has resolved (7) Urinary incontinence: Code(s): R32 - Unspecified urinary incontinence Qualifiers: Urinary Incontinence type: urge incontinence Qualified Code(s): N39.41 - Urge incontinence Plan: As above patient interested in trying medication for her urinary incontinence. Orders: Orders Lipid Panel Today I10 - Essential (primary) hypertension PT Evaluation and Treatment Today N32.89 - Other specified disorders of bladder, R32 - Unspecified urinary incontinence Microalbumin, Random (w Creat) Today I10 - Essential (primary) hypertension Comprehensive [place]. Panel Fast Today I10 - Essential (primary) hypertension Complete Blood Count no Diff Today I10 - Essential (primary) hypertension Medications: New oxybutynin chloride ER 5 mg PO DAILY 30 days 30 tabs 3RF N32.89 - Other specified disorders of bladder Coding Level of Care Code Est Pt Prev Care >65y(20198) Diagnoses Annual physical exam Z00.00 Mixed hyperlipidemia E78.2 Hyperlipidemia type: mixed hyperlipidemia Essential hypertension I10 RONALD (generalized anxiety disorder) F41.1 Spastic bladder N32.89 NICM (nonischemic cardiomyopathy) I42.8 Urge incontinence of urine N39.41 Urinary Incontinence type: urge incontinence Additional Codes RONALD-7 Assessment Billing - RONALD-7 Assessment Tool: RONALD-7 Assessment [id number] ( [id number])
== END 2023-12-12 12:12 | disposition home or self-care (01) ==
PROVIDERS: Visit Provider Physician Assistant
DX: Z00.00 Encounter for general adult medical examination without abnormal findings (principal); I42.8 Other cardiomyopathies; E78.2 Mixed hyperlipidemia; I10 Essential (primary) hypertension; F41.1 Generalized anxiety disorder; N32.89 Other specified disorders of bladder; N39.41 Urge incontinence
CPT/HCPCS: 99397

== ENCOUNTER 2024-01-17 08:55 | Outpatient (REF) | payer MEDICARE, SELFPAY | END 2024-01-17 08:56 | disposition home or self-care (01) | LOC: HO.MAMMO 08:55 | PROVIDERS: PCP Physician Assistant; Visit Provider Physician Assistant | DX: Z12.31 Encounter for screening mammogram for malignant neoplasm of breast (principal) | CPT/HCPCS: 77063; 77067 ==

== ENCOUNTER → 2024-01-17 09:15 | Outpatient (BNV) | payer MEDICARE, SELFPAY | PROVIDERS: PCP Physician Assistant; Visit Provider Radiology Diagnostic Radiology | DX: Z12.31 Encounter for screening mammogram for malignant neoplasm of breast (principal) | CPT/HCPCS: 77063; 77067 ==

== ENCOUNTER 2024-05-24 09:44 | Outpatient (AMB) | payer MEDICARE, SELFPAY ==
[2024-05-24 09:55] VITALS: BP 132/80; PULSE 81; BMI 26.5
--- NOTE | 2024-05-24 09:55 | MHC.OFFVIS ---
Vital Signs 05/24/24 09:55 Height 5 ft 4 in Weight 154 lb 5.177 oz BMI 26.5 BP 132/80 Blood Pressure Location Lt brachial Position Sitting Pulse 81 Pulse Source Monitor Intake Visit Reasons: 1 yr f/up Allergies sulfate Adverse Reaction (Unknown, Uncoded 12/12/23 11:49) skin irritant/rash Medication List - Last Reconciled 05/24/24 by Johnathan Schneider MD amlodipine 5 mg PO DAILY atorvastatin 10 mg PO DAILY calcium-magnesium 300-300 mg 1 tab PO DAILY cholecalciferol (vitamin D3) 25 mcg PO DAILY ezetimibe 10 mg PO DAILY lorazepam 0.5 mg PO DAILY PRN 14 days oxybutynin chloride ER 5 mg PO DAILY 30 days HPI Comments Details: Antonieta returns for follow up regarding left bundle-branch block. Was drinking about 3 glasses of wine daily but has cut back a lot and more recently only 1 glass per day. No specific concerns. No previously diagnosed coronary disease or myocardial infarction or cardiomyopathy. [facility] Medical History Essential hypertension HTN (hypertension) Surgical History Mallet finger of left hand History of D&C Family History Father Anxiety Hypertension Cancer Mother No problems noted. Brother No problems noted. Sister Leukemia Social History Housing: House Alcohol intake: current Alcohol intake frequency: 0-2 drinks per day Patient Tobacco Use Status: Never used Tobacco e-Cigarette/Vaping Use: Never Used Second Hand Smoke Exposure: No Current occupational status: retired Cognitive needs: No Hearing needs: No Vision needs: Yes Review of Systems Const Denies weakness ENT Denies dizziness Card Denies chest pain, Denies chest pain with activity, Denies syncope, Denies rapid heart rate, Denies pedal edema, Denies edema, Denies leg edema, Denies lightheadedness, Denies palpitations, Denies dyspnea, Denies dyspnea on exertion and Denies orthopnea Resp Denies cough, Denies dyspnea and Denies dyspnea on exertion GI Denies hematochezia and Denies change in stool character Musc Denies abnormal gait, Denies muscle cramps, Denies muscle weakness, Denies numbness, Denies radiating pain into limb and Denies tingling Neuro Denies abnormal gait, Denies dizziness, Denies syncope, Denies numbness, Denies tingling and Denies weakness Endo Denies palpitations Physical Exam Vital Signs: Last Vital Signs Pulse 81 05/24/24 09:55 BP 132/80 05/24/24 09:55 BMI result Body Mass Index 26.5 Const General: comfortable and no acute distress Orientation/consciousness: patient oriented x3 HEENT Other: Unremarkable Head: Yes normal to inspection Neck Neck: Yes normal visual inspection Chest Chest palpation & inspection: normal inspection of the chest Resp Auscultation: clear to auscultation bilaterally Cardio Palpation: normal PMI Heart sounds: S1 normal heart sound present, S2 normal heart sound present, no gallops, no murmurs and no rubs GI Palpation (GI): Soft to palpation Back/Spine/Pelvis Other: unremarkable Skin General skin exam: no rashes or lesions noted Neuro General: patient oriented x3 Extrem General: Yes normal to inspection Psych Mental Status: mental status grossly normal Office Procedures EKG Details: EKG with sinus rhythm with a left bundle-branch block pattern at 81/Min. [id number], Complete Assessment & Plan Assessment & Plan (1) LBBB (left bundle branch block): Code(s): I44.7 - Left bundle-branch block, unspecified Category: Medical Plan: Stable. We will follow on EKGs for any progressive conduction system disease. (2) NICM (nonischemic cardiomyopathy): Code(s): I42.8 - Other cardiomyopathies Category: Medical Plan: Slightly variable readings on echocardiograms including 45-50% and 50-55%. Myocardial perfusion imaging was unremarkable. Can be followed on echocardiograms. Likely all related to left bundle-branch block. (3) Essential hypertension: Code(s): I10 - Essential (primary) hypertension Category: Medical Plan: Stable. On amlodipine. (4) Sinus tachycardia: Code(s): R00.0 - Tachycardia, unspecified Category: Medical Plan: Stable. Could be related to alcohol use. (5) Alcohol use: Code(s): Z78.9 - Other specified health status Category: Social Hx Plan: Has cut back a lot compared to before. Again discussed about this. Plan Follow-up in 1 year. In the interim, she will call with concerns. Coding Level of Care Code Est Pt Level 4 (24881) Diagnoses LBBB (left bundle branch block) I44.7 NICM (nonischemic cardiomyopathy) I42.8 Essential hypertension I10 Sinus tachycardia R00.0 Alcohol use Z78.9 CPT Codes EKG - CPT: 45209-[id number], Complete ([id number])
== END 2024-05-24 10:23 | disposition home or self-care (01) ==
PROVIDERS: PCP Physician Assistant; Visit Provider Internal Medicine
DX: I44.7 Left bundle-branch block, unspecified (principal); I42.8 Other cardiomyopathies; I10 Essential (primary) hypertension; R00.0 Tachycardia, unspecified; Z78.9 Other specified health status
CPT/HCPCS: 93010; 99214

== ENCOUNTER → 2024-05-24 09:44 | Outpatient (BNVA) | payer MEDICARE, SELFPAY | PROVIDERS: PCP Physician Assistant; Visit Provider Internal Medicine | DX: I44.7 Left bundle-branch block, unspecified (principal); I42.8 Other cardiomyopathies; R00.0 Tachycardia, unspecified; I10 Essential (primary) hypertension; Z78.9 Other specified health status | CPT/HCPCS: 93005; 99212 ==

== ENCOUNTER → 2024-07-12 17:50 | Outpatient (BNV) | payer MEDICARE, SELFPAY ==
--- NOTE | 2024-07-12 17:51 | A.OFFPC_ITS ---
Intake Visit Reasons: Amb Documentation Allergies sulfate Adverse Reaction (Unknown, Uncoded 12/12/23 11:49) skin irritant/rash Tobacco use date assessed: 12/12/23 Dental Screening Dental Screen Date: 12/12/23 HPI Amb Documentation HPI Details 78-year-old female with a history of car diomyopathy hypertension hyper cholesterolemia generalized anxiety disorder calling in for COVID infection.- went to urgent care and tested for covid . yesterday-but was not given any and antiviral. Patient has been having fevers cough sore throat. [facility] Medical History Essential hypertension HTN (hypertension) Surgical History Mallet finger of left hand History of D&C Family History Father Anxiety Hypertension Cancer Mother No problems noted. Brother No problems noted. Sister Leukemia Social History Housing: House Alcohol intake: current Alcohol intake frequency: 0-2 drinks per day Patient Tobacco Use Status: Never used Tobacco e-Cigarette/Vaping Use: Never Used Second Hand Smoke Exposure: No Current occupational status: retired Cognitive needs: No Hearing needs: No Vision needs: Yes Questionnaire Thrive Questionnaire Date Thrive assessed: 12/12/23 RONALD-7 AMB Questionnaire RONALD-7 Date RONALD - 7 assessed: 12/12/23 (pt taking medication for anxiety ) Source: Developed by Drs. Layo Bales, Vanda Dickerson, Tony Sanders and colleagues, with an educational dany from [employer]. Physical exam (Primary Care) Tobacco/Smoking Status: Tobacco use Status Tobacco use date assessed 12/12/23 12/12/23 11:31 Patient Tobacco Use Status Never used Tobacco 12/12/23 11:23 e-Cigarette/Vaping Use Never Used 12/12/23 11:23 Thrive Assessment: Date of Thrive Assessment Date Thrive assessed 12/12/23 12/12/23 11:31 Telehealth Telehealth Telehealth Platform: Telephone Location of provider rendering services: practice address Location of patient: address on file Patient Identification confirmed using: Name, : Yes Telehealth method: voice only Patient verbally consented to treatment: Yes Patient verbally consented to billing insurance company: Yes Patient informed of any privacy concerns related to visit: Yes Minutes spent on Phone/Video with Pt.: 15 Assessment and Plan Assessment & Plan (1) COVID-19 virus infection: Comment: 07/11/2024 Code(s): U07.1 - COVID-19 Plan: For the sore throat can take Cepacol lozenges, discussed about Delsym to help with dry cough so she can rest and advised to increase oral fluids. Patient also can take Tylenol for chills and fever. Antiviral prescription sent in patient was advised to stop cholesterol medication atorvastatin while on the antiviral. Medications: New nirmatrelvir-ritonavir 300 mg (150 mg x 2)-100 mg (Paxlovid) take TWO 150 mg tablets of nirmatrelvir with ONE 100 mg tablet of ritonavir twice daily for 5 days PO 30 ea 0RF Coding Level of Care Code Tele Est Pt Level 3 (84766) Diagnoses COVID-19 virus infection U07.1
== END ==
PROVIDERS: PCP Physician Assistant; Visit Provider Internal Medicine
DX: U07.1 COVID-19 (principal)
CPT/HCPCS: 99442

== ENCOUNTER 2024-08-04 07:03 | Emergency (ER) | payer MEDICARE, SELFPAY ==
--- NOTE | ~2024-08-04 | XR_ITS ---
EXAMINATION: XR ANKLE, RIGHT CLINICAL INFORMATION: Right ankle pain and swelling COMPARISON: None available. TECHNIQUE: AP, lateral, and mortise views of the right ankle. FINDINGS: Nondisplaced transverse intra-articular fracture is noted through the distal tip of the fibula. Nondisplaced transverse fracture is noted at the base of the fifth metatarsal without obvious intra-articular extension. Ankle mortise is intact. Significant soft tissue swelling is noted over the lateral malleolus. No evidence of soft tissue air or radiopaque foreign body. Degenerative arthritic changes are noted at the first MTP articulation. XR/XR ankle RT min 3V IMPRESSION: Nondisplaced transverse intra-articular fracture through the distal tip of the right fibula. Nondisplaced transverse fracture at the base of the right fifth metatarsal. Electronically signed by: Debby Melvin MD 08/04/2024 08:22 AM EDT
[2024-08-04 07:10] VITALS: BP 149/84; PULSE 113; RESP 18; TEMP 36.9; O2SAT 98; BMI 25.6
--- NOTE | 2024-08-04 07:55 | ED_ITS ---
HPI - Extremity Injury (Lower) General Chief Complaint: Extremity Injury, Lower Stated Complaint: rt foot injury Time Seen by Provider: 08/04/24 07:17 Source: patient and family () Mode of arrival: ambulatory Limitations: no limitations History of Present Illness ED Provider: BENJA EUGENE PA-C HPI Narrative: 78 year old female with pmhx significant for HTN presents to the ED today for evaluation of right ankle pain/ swelling since 1800 yesterday. Patient reports missing the bottom step of her basement stairs causing her to roll her right ankle inward. Admits to falling to the ground and heard a pop from her ankle. Denies head strke or LOC. Not on anticoagulation. Endorses pain to the lateral aspect of her right ankle since with noted bruising. Reports sharp pain with be aring weight on right foot. Took tylenol last night with minimal relief. Pain is a 0 at present as she is not bearing weight. Denies fever, chills, numbness/tingling/weakness to RLE. Related Data Home Medications ?Medication ?Instructions ?Recorded ?Confirmed cholecalciferol (vitamin D3) 25 25 mcg PO DAILY 12/03/20 05/24/24 mcg (1,000 unit) capsule calcium-magnesium 300 mg-300 mg 1 tab PO DAILY 05/24/24 05/24/24 tablet Previous Rx's ?Medication ?Instructions ?Recorded oxybutynin chloride 5 mg 5 mg PO DAILY 30 days #30 tabs 12/12/23 tablet,extended release 24 hr ezetimibe 10 mg tablet 10 mg PO DAILY #90 tabs 03/02/24 amlodipine 5 mg tablet 5 mg PO DAILY #90 caps 03/12/24 lorazepam 0.5 mg tablet 0.5 mg PO DAILY PRN anxiety 14 03/26/24 days #14 tabs nirmatrelvir 300 mg (150 mg See Rx Instructions PO .COMPLEX 07/12/24 x2)-ritonavir 100 mg tablet,dose #30 ea pack (Paxlovid) atorvastatin 10 mg tablet 10 mg PO DAILY #90 tabs 08/01/24 oxycodone 5 mg tablet 5 mg PO Q8H PRN pain (scale score 08/04/24 4-6) #7 tabs walker #1 ea 08/04/24 Allergies Allergy/AdvReac Type Severity Reaction Status Date / Time sulfate AdvReac Unknown skin Uncoded 08/04/24 07:11 irritant/rash Review of Systems Review of Systems: Constitutional: No fever, chills, fatigue, night sweats, weight changes ENT/Mouth: No ear pain, hearing loss, nasal congestion, sinus pain, rhinorrhea, sore throat Eyes: No eye pain, swelling, redness, vision changes, discharge Cardio: No chest pain, palpitations, JIN, orthopnea, peripheral edema Pulm: No SOB, cough, sputum, wheezing, dyspnea, hemoptysis GI: No nausea, vomiting, hematemesis, abdominal pain, diarrhea, constipation, hematochezia, melena : No irregular bleeding, dysuria, frequency, urgency, hesitancy, hematuria, flank pain, urinary flow changes, urinary incontinence or retention MSK: No back pain, neck pain, joint pain, myalgias, +right ankle pain Skin: No lesions, rashes Neuro: No weakness, numbness, paresthesias, LOC, dizziness, headache Psych: No anxiety/panic, depression, SI/HI, AH/VH All other systems reviewed and are negative. [facility] Past Medical History Attestation statement: The following information was validated with the patient. Source: old records reviewed and nursing notes reviewed Medical History Essential hypertension HTN (hypertension) Surgical History Mallet finger of left hand History of D&C Family History Family History Father Anxiety Hypertension Cancer Mother No problems noted. Brother No problems noted. Sister Leukemia Social History Social History Housing: House Alcohol intake: current Alcohol intake frequency: a few times a week Patient Tobacco Use Status: Never used Tobacco Smoked in Last 30 Days: No e-Cigarette/Vaping Use: Never Used Second Hand Smoke Exposure: No Use of substances other than those prescribed or required for medical reasons: No Advance Directives: No Advance Directives Information Provided: No Current occupational status: retired Cognitive needs: No Hearing needs: No Vision needs: Yes Physical Exam Vital Signs: Vital Signs: Last Vital Signs Temp 98 F 08/04/24 11:17 Pulse 82 08/04/24 11:17 Resp 18 08/04/24 11:17 BP 140/76 H 08/04/24 11:17 Pulse Ox 96 08/04/24 11:17 O2 Del Method Room Air 08/04/24 11:17 BMI result Body Mass Index 25.6 Patient hypertensive and tachycardic on arrival, vitals otherwise WNL General: Well appearing, in no acute distress. Skin: Warm, dry, intact. No rashes or lesions. Head: Normocephalic, atraumatic. Cardiac: Chest wall symmetric. RRR. No MRG. No JVD. Lungs: Normal respiratory effort without accessory muscle use. CTA bilaterally. Back: No midline spinous or paraspinal tenderness. No step off deformity. Ext: +right ankle with noted swelling and ecchymosis to lateral malleolus. no noted deformity. 2+ DP pulse intact. ROM of ankle limited secondary to swelling/ pain. able to move all toes. ambulating w/ limping gait. Neuro: AOx3. Normal speech. CN 2-12 grossly intact. Strength 5/5 intact throughout. Sensation intact to light touch. NV intact distally. Psych: Appropriate mood and affect. Responds appropriately to questions. Course Course Course Narrative: 1110 -- x-ray of right ankle showing nondisplaced transverse intra-articular fracture through the distal tip of the right fibula. There is also a nondisplaced transverse fracture at the base of the right 5th metatarsal. I discussed findings with on-call ortho YANCY Mccarthy who recommended combination stirrup and posterior short-leg splint. Patient was splinted by myself with assistance from Farida mai [facility] sausage linker. She is neurovascularly intact distally. Can move all toes. States the splint feels comfortable. I did not feel as though patient could tolerate crutches so I did place physical therapy consultation with patient's permission. PT evaluated patient and is recommending prescription for a rolling or wheeled walker as patient demonstrated the ability to push through both arms and using her left leg for hopping gate pattern without difficulty. RX provided to patient. > Patient informed that she is to be non-weight bearing on her right foot. referral to ortho provided. advised to call this week. > Patient has remained stable throughout ED visit today. Discussed worrisome signs and symptoms and when to return to the ED. All questions answered at this time. Patient is agreeable with disposition and stable for discharge. Medications Administered Discontinued Medications Generic Name Dose Route Start Last Admin Trade Name Norberto PRN Reason Stop Dose Admin Ibuprofen 600 mg 08/04/24 10:02 08/04/24 10:24 Ibuprofen 600 Mg Tablet PO 08/04/24 10:03 600 mg ONCE ONE Administration Medical Decision Making Medical Decision Making MDM Narrative: 78 year old female with pmhx significant for HTN presents to the ED today for evaluation of right ankle pain/ swelling since 1800 yesterday. Hypertensive to 149/84 and tachycardic to 113, likely secondary to pain on ambulating into the ED. she is nontoxic appearing in no acute distress. Sitting comfortably on the exam bed. On exam of right lower extremity, right ankle with noted swelling and ecchymosis to lateral malleolus. no noted deformity. 2+ DP pulse intact. ROM of ankle limited secondary to swelling/ pain. able to move all toes. ambulating w/ limping gait. No calf tenderness noted. No pain over Achilles tendon or plantar fascia. Differential diagnosis includes fracture, ligament/ tendon injury. Lower suspicion for dislocation. Presentation not consistent with gout, pseudogout, septic joint, limb arthritis, neurovascular compromise, compartment syndrome, threat to limb, DVT. Plan for imaging and re-evaluation. Pain control offered the patient however she is declining at this time. Differential Diagnosis Differential Diagnoses: The differential diagnosis associated with the presentation includes As above Admission/Observation Not indicated Independent Interpretation I performed an independent interpretation of an: Plain X-Ray Interpretation: X-ray right ankle showing fracture along the distal lateral malleolus, agree with radiologist's interpretation. Radiology Impression Discussion of test interpretation with radiology: I have reviewed the radiologist's reading. Radiologist Impression: EXAMINATION: XR ANKLE, RIGHT CLINICAL INFORMATION: Right ankle pain and swelling COMPARISON: None available. TECHNIQUE: AP, lateral, and mortise views of the right ankle. FINDINGS: Nondisplaced transverse intra-articular fracture is noted through the distal tip of the fibula. Nondisplaced transverse fracture is noted at the base of the fifth metatarsal without obvious intra-articular extension. Ankle mortise is intact. Significant soft tissue swelling is noted over the lateral malleolus. No evidence of soft tissue air or radiopaque foreign body. Degenerative arthritic changes are noted at the first MTP articulation. XR/XR ankle RT min 3V IMPRESSION: Nondisplaced transverse intra-articular fracture through the distal tip of the right fibula. Nondisplaced transverse fracture at the base of the right fifth metatarsal. Electronically signed by: Debby Melvin MD 08/04/2024 08:22 AM EDT RP Workstation: [employer] Independent Historian Clinical information obtained from an independent historian. History obtained from or confirmed by: Spouse () External Record Review External record reviewed: Inpatient record Prescription Management I considered prescription management with: Pain Medication Social Determinants Patient?s care significantly limited by Social Determinants of Health including: Other Social Determinant of Health Procedures Orthopedic Splinting/Casting Injury #1: Side: right Lower Extremity Injury Location: ankle and foot Lower Extremity Immobilizer: posterior splint and stirrup splint Critical Care Time Critical Care Time Critical Care Time: No Discharge Plan Discharge Clinical Impression: Fracture of fifth metatarsal bone of right foot Closed right fibular fracture Qualifiers: Encounter type: initial encounter Fibula location: distal Patient Disposition: Home, Self-Care Instructions: Leg Fracture (ED), Foot Fracture in Adults (ED) Additional Instructions: You have been evaluated in the Emergency Department today for ankle pain. Your evaluation showed a fracture of your ankle and of your 5th toe. I have placed your ankle in a splint today. Avoid getting the splint wet. This will have to stay on until you follow up with the ortho team. You were evaluated by physical therapy who is recommending a rolling walker for you to use at home. A prescription has been provided to you. You may present to any medical equipment store to purchase this walker. Your to be nonweightbearing on your right foot. Physical therapy demonstrated how to do this with walker today. Please rest and elevate your ankle. I recommend you take 600mg ibuprofen every 6 hours or tylenol 650mg every 6 hours as needed for pain. If needed, you can alternate these medications so that you take one medication every 3 hours. For example, at noon take ibuprofen, then at 3pm take tylenol, then at 6pm take ibuprofen.? Please take Oxycodone as directed as necessary for breakthrough pain. Please follow-up with an orthopedic surgeon in 1 week. You have been provided with a referral. Call them to make an appointment, they will not call you. Return to the Emergency Department if you experience worsening pain, numbness, tingling, change of color in your toes, or any other concerning symptoms. Prescriptions: New oxycodone 5 mg tablet 5 mg PO Q8H PRN (Reason: pain (scale score 4-6)) Qty: 7 0RF Rx Instructions: Partial Fill upon patient request. (HUE) héctor [facility] See Rx Instructions .Route Qty: 1 0RF Rx Instructions: As directed No Action ezetimibe 10 mg tablet 10 mg PO DAILY Qty: 90 4RF amlodipine 5 mg tablet 5 mg PO DAILY Qty: 90 3RF lorazepam 0.5 mg tablet 0.5 mg PO DAILY PRN (Reason: anxiety) 14 Days Qty: 14 0RF atorvastatin 10 mg tablet 10 mg PO DAILY Qty: 90 1RF cholecalciferol (vitamin D3) 25 mcg (1,000 unit) capsule 25 mcg PO DAILY oxybutynin chloride 5 mg tablet extended release 24hr 5 mg PO DAILY 30 Days Qty: 30 3RF Paxlovid 300 mg (150 mg x 2)-100 mg tablets,dose pack See Rx Instructions PO .COMPLEX Qty: 30 0RF Rx Instructions: take TWO 150 mg tablets of nirmatrelvir with ONE 100 mg tablet of ritonavir twice daily for 5 days PO calcium-magnesium 300-300 mg tablet 1 tab PO DAILY Rx Instructions: administer with a meal Referrals: [facility] [Provider Group] (XR ankle RT min 3V IMPRESSION: Nondisplaced transverse intra-articular fracture through the distal tip of the right fibula. Nondisplaced transverse fracture at the base of the right fifth metatarsal.) Sabino Ro PA-C [Primary Care Provider] - Interventions: ED Discharge Assessment Last Done: 08/04/24 11:17 Discharge Date/Time: 08/04/24 11:18 Print Language: Bengali
[2024-08-04 08:00] VITALS: BP 140/70; PULSE 82; RESP 18; TEMP 36.6; O2SAT 96
[2024-08-04] MEDS: Ibuprofen 600 MG TABLET PO (10:24)
[2024-08-04 11:17] VITALS: BP 138/87; BP 140/76; PULSE 82; PULSE 98; RESP 18; TEMP 36.6; O2SAT 96
== END 2024-08-04 11:18 | disposition home or self-care (01) ==
PROVIDERS: Emergency Provider Emergency Medicine Emergency Medical Services; PCP Physician Assistant
DX: S92.354A Nondisplaced fracture of fifth metatarsal bone, right foot, initial encounter for closed fracture (principal); S82.424A Nondisplaced transverse fracture of shaft of right fibula, initial encounter for closed fracture; W10.8XXA Fall (on) (from) other stairs and steps, initial encounter; Y93.89 Activity, other specified; Y92.018 Other place in single-family (private) house as the place of occurrence of the external cause; Y99.9 Unspecified external cause status
CPT/HCPCS: 29515; 73610; 97161; 99284

== ENCOUNTER 2024-08-13 09:13 | Outpatient (AMB) | payer MEDICARE, SELFPAY ==
[2024-08-13 09:13] VITALS: BMI 25.6
--- NOTE | 2024-08-13 09:13 | MHC.OFFVIS ---
Vital Signs 08/13/24 09:13 Height 5 ft 4 in Weight 149 lb BMI 25.6 Intake Visit Reasons: FC-Fracture of fifth metatarsal bone of right foot Intake Note: Antonieta Rodriguez a 78 year old male who presents today for an ER follow up of right foot, fifth metatarsal bone fracture, DOI 08/03/24. Patient was seen at [facility] ER the following day, she states missing the bottom step of her basement stairs causing her to roll her right ankle inward. Admits to falling to the ground and heard a pop from her ankle. Xrays were taken and a splint was put in. Patient states she has not been able to move around because she is unable to use the walker she was given by a friend. She comes in today in a wheelchair. She denies numbness or tingling. She reports on and off pins and needles. She is currently taking ibuprofen and tylenol for pain with relief. Allergies sulfate Adverse Reaction (Unknown, Uncoded 08/13/24 09:20) skin irritant/rash Medication List - Last Reconciled 08/13/24 by Pete Valadez PA-C amlodipine 5 mg PO DAILY atorvastatin 10 mg PO DAILY calcium-magnesium 300-300 mg 1 tab PO DAILY cholecalciferol (vitamin D3) 25 mcg PO DAILY ezetimibe 10 mg PO DAILY lorazepam 0.5 mg PO DAILY PRN 14 days oxybutynin chloride ER 5 mg PO DAILY 30 days [Ramp As directed Duration-99 days] walker As directed HPI HPI FC-Fracture of fifth metatarsal bone of right foot: Details: 78-year-old female who presents to the office today in a wheelchair for an ER follow-up of right 5th metatarsal injury, 08/03 24. She reports she missed a bottom step of her basement stairs causing her to roll her right ankle inward and fell to the ground hearing a pop. She was seen at ER the following day where x-rays were performed and she was placed in a splint. She currently states she has pain and intermittent numbness and tingling in her foot. She is unable to ambulate or use a walker due to the pain. She is taking ibuprofen and Tylenol for her pain with benefits. [facility] Medical History Essential hypertension HTN (hypertension) Surgical History Mallet finger of left hand History of D&C Family History Father Anxiety Hypertension Cancer Mother No problems noted. Brother No problems noted. Sister Leukemia Social History Housing: House Alcohol intake: current Alcohol intake frequency: a few times a week Patient Tobacco Use Status: Never used Tobacco e-Cigarette/Vaping Use: Never Used Second Hand Smoke Exposure: No Current occupational status: retired Cognitive needs: No Hearing needs: No Vision needs: Yes Review of Systems Const All systems reviewed & are unremarkable except as noted in HPI and below Physical Exam Vital Signs: BMI result Body Mass Index 25.6 Const General: cooperative, healthy appearing, comfortable, no acute distress, well developed and alert Orientation/consciousness: patient oriented x3 HEENT Head: Yes normal to inspection, Yes normocephalic and Yes atraumatic Eyes General: appearance normal, both eyes and all related structures Resp Effort & Inspection: normal respiratory effort and able to speak in complete sentences Cardio Rate: regular rate Peripheral pulses: Peripheral pulses 2+ throughout GI Palpation (GI): Soft to palpation Skin Lesions: no lesions Rashes: no rashes Neuro General: patient oriented x3 Extrem Other: Right foot: Skin intact.? There is some bruising of the lateral edge of the left foot and swellin that extends from the ankle into the foot.? There is tenderness at the base of the 5th metatarsal. and along the lateral malleolus. Sensation intact.? EHL intact.? No pain along the medial malleolus.? Neurovascularly intact. Office Procedures Fracture Care Fracture Billing Code: Fracture Billing Code Results Reviewed Results Reviewed: X-rays of right ankle obtained on 08/04/24 show a nondisplaced evulsion fracture of the distal fibula and a nondisplaced evulsion fracture of the distal fibula and a nondisplaced fracture of the base of 5th metatarsal. Assessment & Plan Assessment & Plan (1) Fracture of 5th metatarsal: Code(s): S92.353A - Displaced fracture of fifth metatarsal bone, unspecified foot, initial encounter for closed fracture Category: Medical Qualifiers: Encounter type: initial encounter Fracture type: closed Fracture alignment: nondisplaced Laterality: right Qualified Code(s): S92.354A - Nondisplaced fracture of fifth metatarsal bone, right foot, initial encounter for closed fracture (2) Fracture of distal end of right fibula: Code(s): S82.831A - Other fracture of upper and lower end of right fibula, initial encounter for closed fracture Category: Medical Qualifiers: Encounter type: initial encounter Fracture type: closed Fracture morphology: other fracture Qualified Code(s): S82.831A - Other fracture of upper and lower end of right fibula, initial encounter for closed fracture Plan She was fit for a tall boot. She can weight bear as tolerated. I did stress about strict elevation to help with the amount of swelling along with icing. She can remove the boot for resting and hygiene but I did explain the importance of using it while ambulating. I did give her a prescription of a ramp in case her insurance does cover this equipment. I would like to see her back in 6 weeks with x-rays, sooner if needed. ? Medications: New [Ramp] As directed Duration-99 days 1 ea 0RF Right ankle/toe fracture Patient Instructions: Scribed for Pete Valadez PA-C, by Jonah James medical records auditor, on 08/13/2024 at 9:30 AM EST.? I, Pete Valadez PA-C, have personally reviewed and agree with the information entered by the scribe. Coding Level of Care Code New Pt Level 3 (20706) Complex EM visit Add On G2211 Diagnoses Closed nondisplaced fracture of fifth metatarsal bone of right foot, initial encounter S92.354A Encounter type: initial encounter Fracture type: closed Fracture alignment: nondisplaced Laterality: right Other closed fracture of distal end of right fibula, initial encounter S82.831A Encounter type: initial encounter Fracture type: closed Fracture morphology: other fracture CPT Codes Fracture Care - Fracture Billing Code: Fracture Billing Code ([id number])
== END 2024-08-13 09:51 | disposition home or self-care (01) ==
PROVIDERS: PCP Physician Assistant; Visit Provider Physician Assistant
DX: S92.354A Nondisplaced fracture of fifth metatarsal bone, right foot, initial encounter for closed fracture (principal); S82.831A Other fracture of upper and lower end of right fibula, initial encounter for closed fracture; W10.8XXA Fall (on) (from) other stairs and steps, initial encounter
CPT/HCPCS: 99203; G2211

== ENCOUNTER → 2024-08-13 09:13 | Outpatient (BNVA) | payer MEDICARE, SELFPAY | PROVIDERS: PCP Physician Assistant; Visit Provider Physician Assistant | DX: S92.354A Nondisplaced fracture of fifth metatarsal bone, right foot, initial encounter for closed fracture (principal); S82.831A Other fracture of upper and lower end of right fibula, initial encounter for closed fracture; W10.9XXA Fall (on) (from) unspecified stairs and steps, initial encounter; Y93.9 Activity, unspecified; Y92.9 Unspecified place or not applicable; Y99.9 Unspecified external cause status | CPT/HCPCS: 99202 ==

== ENCOUNTER 2024-08-28 09:50 | Outpatient (REF) | payer MEDICARE, SELFPAY ==
[2024-08-28 10:57] LABS: Appearance Urine Clear; Color Urine Yellow; Glucose Urine UA Negative (Negative); Leukocyte Esterase Urine Small (1+) (Negative); Nitrite Urine Negative (Negative); PH 7.5 (5.0-9.0); Specific Gravity - Urine 1.015 (1.005-1.025); UMIC TRIGGER UACC YES; Urine Blood Negative (Negative); Urine Ketones Negative (Negative); Urine Protein Negative (Neg-Trace)
[2024-08-28 11:25] LABS: Bacteria Urine None Seen (None Seen); Hyaline Casts Urine 0-2 /LPF (0-2); RBC Urine 0-2 /HPF (0-2); UACC Culture Trigger YES; WBC Urine 0-5 /HPF (0-5)
== END 2024-08-28 09:51 | disposition home or self-care (01) ==
LOC: HO.LAB 09:50
PROVIDERS: PCP Physician Assistant; Visit Provider Physician Assistant
DX: R30.0 Dysuria (principal); N39.41 Urge incontinence
CPT/HCPCS: 81001; 87086

== ENCOUNTER 2024-09-26 08:58 | Outpatient (AMB) | payer MEDICARE, SELFPAY ==
[2024-09-26 09:08] VITALS: BMI 25.6
--- NOTE | 2024-09-26 09:08 | A.OFFVIS_ITS ---
Vital Signs 09/26/24 09:08 Height 5 ft 4 in Weight 149 lb BMI 25.6 Intake Visit Reasons: 6wk f/u Rt ankl/toe fx with xrays Intake Note: Antonieta Rodriguez a 78 year old female who presents today for a follow up of right foot, fifth metatarsal bone fracture, DOI 08/03/24. X-rays updated. Patient reports she is doing excellent, stating no pain. She would like to discuss discontinuing use of walking boot and being able to drive. Allergies sulfate Adverse Reaction (Unknown, Uncoded 09/26/24 09:14) skin irritant/rash Medication List - Last Reconciled 09/26/24 by Pete Valadez PA-C amlodipine 5 mg PO DAILY atorvastatin 10 mg PO DAILY calcium-magnesium 300-300 mg 1 tab PO DAILY cholecalciferol (vitamin D3) 25 mcg PO DAILY ezetimibe 10 mg PO DAILY lorazepam 0.5 mg PO DAILY PRN 14 days [Ramp As directed Duration-99 days] walker As directed HPI HPI 6wk f/u Rt ankl/toe fx with xrays: Details: 78-year-old female who returns to the office today for a follow-up of right ankle fracture and right foot fracture, 08/03/24. She reports she has no pain and is doing well overall. She would like to discuss if she can discontinue the boot as she is able to ambulate without the boot. She has no other concerns today. [facility] Medical History Essential hypertension HTN (hypertension) Surgical History Mallet finger of left hand History of D&C Family History Father Anxiety Hypertension Cancer Mother No problems noted. Brother No problems noted. Sister Leukemia Social History Housing: House Alcohol intake: current Alcohol intake frequency: a few times a week Patient Tobacco Use Status: Never used Tobacco e-Cigarette/Vaping Use: Never Used Second Hand Smoke Exposure: No Current occupational status: retired Cognitive needs: No Hearing needs: No Vision needs: Yes Review of Systems Const All systems reviewed & are unremarkable except as noted in HPI and below Physical Exam Vital Signs: BMI result Body Mass Index 25.6 Const General: cooperative, healthy appearing, comfortable, no acute distress, well developed and alert Orientation/consciousness: patient oriented x3 HEENT Head: Yes normal to inspection, Yes normocephalic and Yes atraumatic Eyes General: appearance normal, both eyes and all related structures Resp Effort & Inspection: normal respiratory effort and able to speak in complete sentences Cardio Rate: regular rate Peripheral pulses: Peripheral pulses 2+ throughout GI Palpation (GI): Soft to palpation Skin Lesions: no lesions Rashes: no rashes Neuro General: patient oriented x3 Extrem Other: Right foot: Skin intact.? No tenderness at the base of the 5th metatarsal or along the lateral malleolus. Sensation intact.? EHL intact.? No pain along the medial malleolus.? Neurovascularly intact. Results Reviewed Results Reviewed: X-rays of right ankle and right foot obtained today show interval healing with callus formation Assessment & Plan Assessment & Plan (1) Fracture of 5th metatarsal: Code(s): S92.353A - Displaced fracture of fifth metatarsal bone, unspecified foot, initial encounter for closed fracture Category: Medical Qualifiers: Encounter type: subsequent encounter Fracture alignment: nondisplaced Fracture type: closed Laterality: right Fracture healing: with routine healing Qualified Code(s): S92.354D - Nondisplaced fracture of fifth metatarsal bone, right foot, subsequent encounter for fracture with routine healing (2) Fracture of distal end of right fibula: Code(s): S82.831A - Other fracture of upper and lower end of right fibula, initial encounter for closed fracture Category: Medical Qualifiers: Encounter type: subsequent encounter Fracture morphology: other fracture Fracture type: closed Fracture healing: with routine healing Qualified Code(s): S82.831D - Other fracture of upper and lower end of right fibula, subsequent encounter for closed fracture with routine healing Plan She will proceed with PT to work on ROM, gentle strength and proprioceptive training. She was given a lace up ankle brace in the office today. I did explain walking on uneven ground may cause some discomfort. I would recommend avoiding impact activity for the next 4 weeks. She will see me back prn. Orders: Orders XR ankle RT min 3V Today M25.571 - Pain in right ankle and joints of right foot XR foot RT 2V Today M79.671 - Pain in right foot PT Evaluation and Treatment Today S82.831A - Other fracture of upper and lower end of right fibula, initial encounter for closed fracture, S92.354A - Nondisplaced fracture of fifth metatarsal bone, right foot, initial encounter for closed fracture Patient Instructions: Scribed for Pete Valadez PA-C, by Jonah James medical logistics specialist, on 09/26/2024 at 9:30 AM EST.? I, Pete Valadez PA-C, have personally reviewed and agree with the information entered by the scribe. Coding Level of Care Code Global (38237) Diagnoses Closed nondisplaced fracture of fifth metatarsal bone of right foot with routine healing, subsequent encounter S92.354D Encounter type: subsequent encounter Fracture alignment: nondisplaced Fracture type: closed Laterality: right Fracture healing: with routine healing Other closed fracture of distal end of right fibula with routine healing, s ubsequent encounter S82.831D Encounter type: subsequent encounter Fracture morphology: other fracture Fracture type: closed Fracture healing: with routine healing
== END 2024-09-26 09:41 | disposition home or self-care (01) ==
LOC: HO.HOS 08:59
PROVIDERS: PCP Physician Assistant; Visit Provider Physician Assistant
DX: S92.354D Nondisplaced fracture of fifth metatarsal bone, right foot, subsequent encounter for fracture with routine healing (principal); S82.831D Other fracture of upper and lower end of right fibula, subsequent encounter for closed fracture with routine healing
CPT/HCPCS: 99213

== ENCOUNTER 2024-09-26 16:13 | Outpatient (REF) | payer MEDICARE, SELFPAY | END 2024-09-26 16:14 | disposition home or self-care (01) | LOC: HO.HOSX 16:13 | PROVIDERS: Visit Provider Physician Assistant | DX: M25.571 Pain in right ankle and joints of right foot (principal); M79.671 Pain in right foot; S92.354D Nondisplaced fracture of fifth metatarsal bone, right foot, subsequent encounter for fracture with routine healing; S82.831D Other fracture of upper and lower end of right fibula, subsequent encounter for closed fracture with routine healing | CPT/HCPCS: 73610; 73620; 99212 ==

== ENCOUNTER 2024-11-05 10:55 | Outpatient (RCR) | payer MEDICARE, SELFPAY ==
--- NOTE | 2024-10-22 11:43 | MHC.PT.EP ---
[facility] [place] Office [place] Office [place] Office [address] [phone] F: [phone] F: [phone] F: [phone] F: [phone] Physical Therapy Plan of Care Date of Evaluation: 10/22/24 Date of Surgery: Diagnosis: Fracture of distal end of RIGHT fibula, 5th metatarsal (MD Dx) RIGHT ankle stiffness and weakness s/p fracture (PT Dx) RS Assessment: Antonieta Rodriguez is a 78 yo female who was referred by Pete Valadez PA-C for Dx of fracture of distal end of RIGHT fibula. PT diagnosis is ankle weakness and decreased ROM s/p RIGHT ankle fracture. Impairments include decreased ankle ROM, decreased ankle strength, decreased SLS and tandem stance balance, and antalgic gait pattern resulting in their inability to drive, bend down, and navigate stairs. These deficits are impacting their ability to participate in cleaning the home, walking long distances, and biking. Pt will benefit from skilled PT to address impairments and meet their goals. Frequency and Duration: The patient will be seen 1-2x/week for 4 weeks Short Term Goals: 2 weeks Patient will be able to perform HEP to independently manage condition. Patient will decrease circumferential swelling in R foot by 0.5 cm to improve ankle mobility. Skilled Nursing Goals: 4 weeks Patient will ambulate with heel toe rocker to be able to ambulate 50 ft without limitation. Patient will increase tandem stance with R foot behind to 15 sec to improve balance during stair navigation. Treatment Plan: Modalities to reduce pain, spasms and effusion. Manual therapy to restore motion and function. Therapeutic exercise to improve strength and flexibility. Neuromuscular re-education for posture and balance. Therapeutic activities to return to functional activities of daily living. Electronically signed by: Trixie Pryor, PT, DPT Please sign and return to therapist. Thank you for your referral.
--- NOTE | 2024-11-05 14:31 | MHC.PT.DC ---
[facility] [place] Office [place] Office [place] Office [address] Mary Goncalves 140 [facility] [phone] F: [phone] F: [phone] F: [phone] F: [phone] Physical Therapy Discharge Report Diagnosis: Fracture of distal end of RIGHT fibula, 5th metatarsal (MD Dx) RIGHT ankle stiffness and weakness s/p fracture (PT Dx) RS Date of Surgery: Date of Evaluation: 10/22/24 Date of Discharge: 11/05/24 Treatments to Date: 3 Cancellations to Date: No Shows to Date: Discharge Status: Achieved Goals Improved Function Independent with HEP Patient Elected to Stop Discharge Summary: Antonieta Rodriguez has increased ankle ROM and strength, as well as improved in balance and gait. She has reduced swelling and increased mobility of her ankle. Her LEFI score has increased and surpassed the MCID since initial eval indicating an improvement in function. She is also independent in HEP. Therefore she will be discharging PT today. Electronically signed by: Trixie Pryor, PT, DPT Please sign and return to therapist. Thank you for your referral.
== END 2024-11-05 13:11 | disposition home or self-care (01) ==
LOC: HO.PT 10:55
PROVIDERS: PCP Physician Assistant; Visit Provider Physician Assistant
DX: S82.831A Other fracture of upper and lower end of right fibula, initial encounter for closed fracture (principal); S92.354A Nondisplaced fracture of fifth metatarsal bone, right foot, initial encounter for closed fracture
CPT/HCPCS: 97110; 97112; 97140; 97161; 97535

== ENCOUNTER 2024-12-13 11:17 | Outpatient (AMB) | payer MEDICARE, SELFPAY ==
[2024-12-13 11:21] VITALS: BP 130/80; PULSE 110; TEMP 36.2; O2SAT 95; BMI 26.6
--- NOTE | 2024-12-13 11:21 | MHC.PC.OV ---
Vital Signs 12/13/24 11:21 Height 5 ft 4 in Weight 155 lb 2 oz BMI 26.6 BP 130/80 Blood Pressure Location Lt brachial Position Sitting Pulse 110 H Pulse Source Pulse Oximeter Temp 97.1 F Temp Source Temporal Artery Scan Pulse Oximetry (%) 95 Oxygen Delivery Method Room Air Intake Visit Reasons: pe Allergies sulfate Adverse Reaction (Unknown, Uncoded 12/13/24 11:30) skin irritant/rash Medication List - Last Reconciled 12/13/24 by Sabino Ro PA-C amlodipine 5 mg PO DAILY atorvastatin 10 mg PO DAILY calcium-magnesium 300-300 mg 1 tab PO DAILY cholecalciferol (vitamin D3) 25 mcg PO DAILY ezetimibe 10 mg PO DAILY lorazepam 0.5 mg PO DAILY PRN 14 days [Ramp As directed Duration-99 days] walker As directed Tobacco use date assessed: 12/12/23 Dental Screening Dental Screen Date: 12/12/23 HPI pe HPI Details Patient is a 78 year female here today for an annual physical? Patient has a past medical history significant for hypertension left bundle-branch block ,? hyperlipidemia. .. .. Hypertension :? Blood pressure has been improved the addition of amlodipine. .. Hyperlipidemia:?.?Cholesterol Much improved since starting Statin therapy. Generalized anxiety disorder: Her is most of the trigger to her anxiety. She reports her anxiety is well controlled though on on occasion does have to take low-dose lorazepam for panic attacks. .. Left bundle branch block/ cardiomyopathy: Followed annually with cardiology. Does drink 3 glasses of wine per day. She is no symptoms of chest discomfort, shortness of breath or syncopal episodes. No overt signs of heart failure Colon cancer screening: UTd with colonoscopies. She has not interested in any further colon cancer screening Vaccines: : Up-to-date with COVID vaccine, tetanus vaccine .. mammo: UTD with mammo done in 12/2023 [facility] Medical History Essential hypertension HTN (hypertension) Surgical History Mallet finger of left hand History of D&C Family History Father Anxiety Hypertension Cancer Mother No problems noted. Brother No problems noted. Sister Leukemia Social History Housing: House Alcohol intake: current Alcohol intake frequency: 0-2 drinks per day Alcohol type: wine Patient Tobacco Use Status: Never used Tobacco e-Cigarette/Vaping Use: Never Used Second Hand Smoke Exposure: No Current occupational status: retired Cognitive needs: No Hearing needs: No Vision needs: Yes Questionnaire PHQ-9 Over the last 2 weeks, how often have you been bothered by any of the following problems? 1. Little interest or pleasure in doing things: not at all 2. Feeling down, depressed, or hopeless: not at all 3. Trouble falling or staying asleep, or sleeping too much: several days 4. Feeling tired or having little energy: not at all 5. Poor appetite or overeating: not at all 6. Feeling bad about yourself - or that you are a failure or have let yourself or your family down: not at all 7. Trouble concentrating on things, such as reading the newspaper or watching television: not at all 8. Moving or speaking so slowly that other people could have noticed. Or the opposite - being so fidgety or restless that you have been moving around a lot more than usual: not at all 9. Thoughts that you would be better off or of hurting yourself in some way: not at all Total score: 1 Depression Screening Interpretation: Negative Depression Screening Done: Yes 99893 - PHQ-9 Billing: Yes Source: Developed by Drs. Layo Bales, Vanda Dickerson, Tony Sanders and colleagues, with an educational dany from [employer]. Thrive Questionnaire Date Thrive assessed: 12/13/24 I am a: Patient What is your living situation today?: I have a steady place to live Within the past 12 months, did the food you bought not last and you didn't have the money to get more?: Never true Within the past 12 months, did you worry whether your food would run out before you got money to buy more?: Never true Do you have trouble paying for medicines?: No Do you have trouble getting transportation to medical appointments?: No Do you have trouble paying your heating and electricity bill?: No Do you have trouble taking care of your child, family member or friend?: No Do you have trouble with day-to-day activities such as bathing, preparing meals, shopping, managing finances, etc.?: No Are you currently unemployed and looking for a job?: No Are you interested in more education?: No Please select the resources that you would like help with: None Currently or been in a relationship where the following occur: No concerns reported THRIVE Score: 0 AUDIT C Alcohol Use Questionnaire (AUDIT-C) 1. How often do you have a drink containing alcohol?: 2-3 times a week 2. How many drinks containing alcohol do you have on a typical day when you are drinking?: 1 or 2 3. How often do you have six or more drinks on one occasion?: Less than monthly Total Score: 4 RONALD-7 AMB Questionnaire RONALD-7 Date RONALD - 7 assessed: 12/13/24 (pt taking medication for anxiety ) Feeling nervous, anxious, or on edge: 0 = Not at all Not being able to stop or control worryin = Not at all Worrying too much about different things: 0 = Not at all Trouble relaxin = Not at all Being so restless that it is hard to sit still: 0 = Not at all Becoming easily annoyed or irritable: 1 = Several days Feeling afraid as if something awful might happen: 0 = Not at all Total RONALD-7 score (0-4 normal; 5-9 mild; 10-14 moderate; 15-21 severe): 1 Source: Developed by Drs. Layo Bales, Vanda Dickerson, Tony Sanders and colleagues, with an educational adny from [employer]. RONALD-7 Assessment Billing RONALD-7 Assessment Tool: RONALD-7 Assessment 01540 Review of Systems Const Denies body aches, Denies chills, Denies excessive sweating, Denies fatigue, Denies fever(s) and Denies headache(s) Eyes Denies blurry vision ENT Denies dysphagia, Denies vertigo, Denies dizziness, Denies headache(s), Denies hearing loss and Denies tinnitus Card Denies chest pain, Denies chest pain with activity, Denies syncope, Denies irregular heart rhythm and Denies dyspnea Resp Denies chest congestion, Denies cough, Denies hemoptysis, Denies dyspnea and Denies wheezing GI Denies abdominal pain, Denies melena, Denies hematochezia, Denies coffee ground emesis, Denies dysphagia, Denies diarrhea, Denies nausea and Denies vomiting Denies urinary frequency, Denies dysuria, Denies urinary hesitancy and Denies urinary urgency Musc Denies arthralgias, Denies limited range of motion, Denies muscle cramps and Denies muscle weakness Skin/Breast Denies rash and Denies skin ulcer Neuro Denies Abnormal speech present, Denies confusion, Denies vertigo, Denies dizziness, Denies syncope, Denies headache(s), Denies memory loss and Denies seizure-like activity Psych Denies anxiety, Denies confusion, Denies depression, Denies memory loss, Denies panic attacks and Denies paranoia Endo Denies excessive sweating, Denies fatigue, Denies flushing, Denies polydipsia and Denies polyuria Aller/Immun Denies wheezing Physical exam (Primary Care) Vital Signs: Last Vital Signs Temp 97.1 F 12/13/24 11:21 Pulse 110 H 12/13/24 11:21 BP 130/80 12/13/24 11:21 Pulse Ox 95 12/13/24 11:21 Oxygen Delivery Method Room Air 12/13/24 11:21 BMI result Body Mass Index 26.6 Tobacco/Smoking Status: Tobacco use Status Tobacco use date assessed 12/12/23 12/13/24 11:25 Patient Tobacco Use Status Never used Tobacco 12/13/24 11:35 e-Cigarette/Vaping Use Never Used 12/13/24 11:35 PHQ-9: PHQ-9 Score PHQ-9: Total score 1 12/13/24 11:59 Depression Screening Interpretation: Negative Thrive Assessment: Date of Thrive Assessment Date Thrive assessed 12/13/24 12/13/24 11:25 Currently or been in a relationship where the following occur: No concerns reported Const General: cooperative, comfortable, no acute distress, alert and awake; No confusion Orientation/consciousness: oriented to person, oriented to place, patient oriented x3 and No confusion HENMT Head: Yes normocephalic Ears: external ears normal and TM's normal bilaterally Face and sinus: No sinus tenderness Mouth: Normal oral and palatal mucosa present and tongue normal Teeth and gingiva: dentition normal and gingiva normal Throat: Yes posterior oropharynx normal, Yes tonsils normal and Yes uvula midline Eyes Conjunctivae: conjunctivae normal Sclerae: sclerae normal Pupils: Equal, round and reactive pupils present EOM: EOMs intact bilaterally Direct Ophthalmoscopy: No no photophobia Neck Neck: Yes no lymphadenopathy, No tender and Yes no JVD Thyroid: Thyroid normal Carotids: no bruits Chest Chest palpation & inspection: no tenderness Resp Effort & Inspection: normal respiratory effort, no audible wheezes, not labored and no stridor Auscultation: no crackles, no rales, no rhonchi and no wheezes Cardio Jugular venous distension: no JVD Rate: regular rate, not bradycardic and not tachycardic Rhythm: regular rhythm Bruits: no carotid bruits Peripheral pulses: Peripheral pulses 2+ throughout GI Inspection: Yes normal to inspection, No abdominal wall ecchymosis and No visible herniation Palpation (GI): Soft to palpation, nontender, no guarding, not rigid and No hepatosplenomegaly present Auscultation: normoactive bowel sounds General: Yes no CVA tenderness Back/Spine/Pelvis Back: no CVA tenderness and No back tenderness Cervical Spine: cervical ROM normal Thoracic/Lumbar Spine: thoracic and lumbar spine normal to inspection, straight leg raise negative bilaterally, No thoraco-lumbar ROM limited and No lumbar spinal tenderness Skin Lesions: no lesions Rashes: no rashes Wounds: no wounds Neuro General: oriented to person, oriented to place, patient oriented x3, CN's II-XI intact bilaterally and No confusion Cranial nerves: Yes Equal, round and reactive pupils present and Yes Normal accommodation reflex present Cognition (Neuro): normal cognition Speech: No Abnormal speech present Gait exam (Neuro): Normal gait present Motor exam (neuro): 5/5 motor strength present throughout Extrem Right upper extremity: full ROM; no cyanosis Left upper extremity: full ROM; no cyanosis Right lower extremity: no edema Left lower extremity: no edema Psych Appearance: grossly normal Mental Status: mental status grossly normal Affect: normal affect Attitude: cooperative Thought process: Normal thought process present Coding Level of Care Code Est Pt Prev Care >65y(70519) Diagnoses Annual physical exam Z00.00 Mixed hyperlipidemia E78.2 Hyperlipidemia type: mixed hyperlipidemia Essential hypertension I10 Hypertension type: essential hypertension RONALD (generalized anxiety disorder) F41.1 Additional Codes RONALD-7 Assessment Billing - RONALD-7 Assessment Tool: RONALD-7 Assessment 32984 ([id number]) PHQ-9 - 36617 - PHQ-9 Billing: Yes ([id number]) Assessment & Plan Assessment & Plan (1) Annual physical exam: Code(s): Z00.00 - Encounter for general adult medical examination without abnormal findings Category: Medical Plan: As per HPI (2) HLD (hyperlipidemia): Code(s): E78.5 - Hyperlipidemia, unspecified Category: Medical Qualifiers: Hyperlipidemia type: mixed hyperlipidemia Qualified Code(s): E78.2 - Mixed hyperlipidemia Plan: Patient continues on atorvastatin and ezetimibe to reduce her cholesterol. Most recent cholesterol panel showing good control over total cholesterol and LDL. Goal LDL is to remain below 130 (3) HTN (hypertension): Code(s): I10 - Essential (primary) hypertension Category: Medical Qualifiers: Hypertension type: essential hypertension Qualified Code(s): I10 - Essential (primary) hypertension Plan: Patient's blood pressure acceptable today in office. Will continue her current dose of antihypertensive medication with goal blood pressure to be below 140/90 (4) RONALD (generalized anxiety disorder): Code(s): F41.1 - Generalized anxiety disorder Category: Medical Plan: Patient reports her anxiety is fairly well controlled. Does have to use lorazepam during social events that are chronic duration. Her big trigger for anxiety as her 's health.
== END 2024-12-13 11:56 | disposition home or self-care (01) ==
PROVIDERS: PCP Physician Assistant; Visit Provider Physician Assistant
DX: Z00.00 Encounter for general adult medical examination without abnormal findings (principal); E78.2 Mixed hyperlipidemia; I10 Essential (primary) hypertension; F41.1 Generalized anxiety disorder

== ENCOUNTER → 2024-12-13 11:17 | Outpatient (BNVA) | payer MEDICARE, SELFPAY | PROVIDERS: PCP Physician Assistant; Visit Provider Physician Assistant | DX: Z00.00 Encounter for general adult medical examination without abnormal findings (principal); E78.2 Mixed hyperlipidemia; I10 Essential (primary) hypertension; F41.1 Generalized anxiety disorder | CPT/HCPCS: 96127; 99397 ==

== ENCOUNTER 2024-12-17 08:52 | Outpatient (REF) | payer MEDICARE, SELFPAY ==
[2024-12-17 10:05] LABS: Hematocrit 41.3 % (37.0-47.0); Mean Corpuscular HGB Conc 33.9 g/dl (31.0-35.0); Mean Corpuscular Hemoglobin 32.9 pg (27.0-33.0); Mean Corpuscular Volume 97.2 fL (80.0-98.0); Mean Platelet Volume 10.1 fL (9.4-12.3); Platelet Count 227 X10*3/uL (160-400); Red Blood Count 4.25 X10*6/uL (4.20-5.50); Red Cell Distribution Width 13.1 % (11.0-16.0); White Blood Count 5.2 X10*3/uL (4.8-10.8)
[2024-12-17 10:25] LABS: Appearance Urine Clear; Color Urine Yellow; Glucose Urine UA Negative (Negative); Leukocyte Esterase Urine Moderate (2+) (Negative); Nitrite Urine Negative (Negative); Specific Gravity - Urine 1.025 (1.005-1.025); UMIC TRIGGER UACC YES; Urine Blood Negative (Negative); Urine Ketones 15 mg/dL (Negative); Urine Protein Trace mg/dL (Neg-Trace)
[2024-12-17 10:30] LABS: Bacteria Urine None Seen (None Seen); Hyaline Casts Urine 0-2 /LPF (0-2); RBC Urine 0-2 /HPF (0-2); Squamous Epithelial Cell Urine 0-2 /HPF (0-2); UACC Culture Trigger YES; WBC Urine 21-50 /HPF (0-5)
[2024-12-17 10:42] LABS: Alanine Aminotransferase 18 U/L (0-31); Albumin Level 4.4 g/dL (3.5-5.0); Alkaline Phosphatase 65 U/L (39-117); Anion Gap 9 (12-20); Aspartate Amino Transferase 25 U/L (5-31); Bilirubin Total 0.8 mg/dL (0.0-1.0); Blood Urea Nitrogen 10 mg/dL (9-16); Calcium 8.7 mg/dL (8.4-10.2); Carbon Dioxide 27 mmol/L (22-29); Chloride 106 mmol/L (96-108); Cholesterol 181 mg/dL (<200); Estimated Glomerular Filt Rate > 60; Glucose Fasting 85 mg/dL (60-99); HDL Cholesterol 94 mg/dL (>40); LDL Cholesterol Calculated 77 mg/dL (<100); Potassium 4.4 mmol/L (3.3-5.1); Sodium 138 mmol/L (135-145); Total Protein 6.9 g/dL (6.5-8.0); Triglycerides 50 mg/dL (<150)
[2024-12-17 11:06] LABS: Creatinine Urine 203.35 mg/dL; Microalbum/Creatinine Ratio Ur 9.3 ug/mg cr (<30)
[2024-12-17 11:10] LABS: Vitamin B12 431 pg/mL (200-900)
== END 2024-12-17 08:53 | disposition home or self-care (01) ==
LOC: HO.LAB 08:52
PROVIDERS: PCP Physician Assistant; Visit Provider Physician Assistant
DX: I10 Essential (primary) hypertension (principal); E78.2 Mixed hyperlipidemia; E53.8 Deficiency of other specified B group vitamins; R74.8 Abnormal levels of other serum enzymes; R30.0 Dysuria; N39.41 Urge incontinence
CPT/HCPCS: 36415; 80053; 80061; 81001; 82043; 82570; 82607; 82746; 85027; 87086

== ENCOUNTER 2025-01-22 10:03 | Outpatient (REF) | payer MEDICARE, SELFPAY | END 2025-01-22 10:04 | disposition home or self-care (01) | LOC: HO.MAMMO 10:03 | PROVIDERS: PCP Physician Assistant; Visit Provider Physician Assistant | DX: Z12.31 Encounter for screening mammogram for malignant neoplasm of breast (principal) | CPT/HCPCS: 77063; 77067 ==

== ENCOUNTER → 2025-01-22 10:30 | Outpatient (BNV) | payer MEDICARE, SELFPAY | PROVIDERS: PCP Physician Assistant; Visit Provider Internal Medicine | DX: Z12.31 Encounter for screening mammogram for malignant neoplasm of breast (principal) | CPT/HCPCS: 77063; 77067 ==

== ENCOUNTER 2025-03-12 14:04 | Outpatient (AMB) | payer MEDICARE, SELFPAY ==
[2025-03-12 14:07] VITALS: BP 136/62; PULSE 82; TEMP 36.4; O2SAT 96; BMI 26.1
--- NOTE | 2025-03-12 14:07 | MHC.PC.OV ---
Vital Signs 03/12/25 14:07 Height 5 ft 4 in Weight 152 lb BMI 26.1 BP 136/62 Blood Pressure Location Lt brachial Position Sitting Pulse 82 Pulse Source Pulse Oximeter Temp 97.5 F Temp Source Temporal Artery Scan Pulse Oximetry (%) 96 Oxygen Delivery Method Room Air Intake Visit Reasons: Eye Physician at [place] 03/28 rt & 04/04 lt Intake Note: Patient is here for a pre-operative evaluation for cataract surgery. The procedure is scheduled with Dr. Whaley on 03/28 for the right eye and 04/04 for the left eye. 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 Accompanied by: Self / Same As Patient Allergies sulfate Adverse Reaction (Unknown, Uncoded 03/12/25 14:21) skin irritant/rash Medication List - Last Reconciled 03/12/25 by Sabino Ro PA-C amlodipine 5 mg PO DAILY atorvastatin 10 mg PO DAILY calcium-magnesium 300-300 mg 1 tab PO DAILY cholecalciferol (vitamin D3) 25 mcg PO DAILY ezetimibe 10 mg PO DAILY lorazepam 0.5 mg PO DAILY PRN 14 days [Ramp As directed Duration-99 days] walker As directed Tobacco use date assessed: 03/12/25 Fall risk assessment: No Falls in past year Last assessed Fall Risk: 03/12/25 Dental Screening Dental Screen Date: 03/12/25 Did you have a dental visit in the last 12 months?: Yes Did you have a dental problem in the last 6 months where you did not have access to dental care?: No Was dental information given to patient?: Patient has dentist HPI Eye Physician at [facility] 03/28 rt & 04/04 lt HPI Details Patient is a 79 year female here today for a preop visit. She is due for cataract removal surgery in early March. Patient has a past medical history significant for hypertension left bundle-branch block ,? hyperlipidemia. Otherwise patient does not have a past history of CVA, mi or Congestive heart failure. Patient is not on any anticoagulation or anti platelet therapy. CHRONIC MEDICAL CONDITIONS--> .. Hypertension :? Patient's blood pressure acceptable today in office, continues on 5 mg amlodipine with good effect. .. Hyperlipidemia:?.?Cholesterol Much improved since starting Statin therapy. Generalized anxiety disorder: Her is most of the trigger to her anxiety. She reports her anxiety is well controlled though on on occasion does have to take low-dose lorazepam for panic attacks. .. Left bundle branch block/ cardiomyopathy: Followed annually with cardiology. Does drink 3 glasses of wine per day. She is no symptoms of chest discomfort, shortness of breath or syncopal episodes. No overt signs of heart failure. [facility], [facility] Medical History Essential hypertension HTN (hypertension) Surgical History Mallet finger of left hand History of D&C Family History Father Anxiety Hypertension Cancer Mother No problems noted. Brother No problems noted. Sister Leukemia Social History Housing: House Alcohol intake: current Alcohol intake frequency: 0-2 drinks per day Alcohol type: wine Patient Tobacco Use Status: Never used Tobacco e-Cigarette/Vaping Use: Never Used Second Hand Smoke Exposure: No Current occupational status: retired Cognitive needs: No Hearing needs: No Vision needs: Yes Questionnaire Thrive Questionnaire Date Thrive assessed: 12/06/24 I am a: Patient What is your living situation today?: I have a steady place to live Within the past 12 months, did the food you bought not last and you didn't have the money to get more?: Never true Within the past 12 months, did you worry whether your food would run out before you got money to buy more?: Never true Do you have trouble paying for medicines?: No Do you have trouble getting transportation to medical appointments?: No Do you have trouble paying your heating and electricity bill?: No Do you have trouble taking care of your child, family member or friend?: No Do you have trouble with day-to-day activities such as bathing, preparing meals, shopping, managing finances, etc.?: No Are you currently unemployed and looking for a job?: No Are you interested in more education?: No Please select the resources that you would like help with: None Currently or been in a relationship where the following occur: No concerns reported THRIVE Score: 0 RONALD-7 AMB Questionnaire RONALD-7 Date RONALD - 7 assessed: 12/13/24 (pt taking medication for anxiety ) Source: Developed by Drs. Layo Bales, Vanda Dickerson, Tony Sanders and colleagues, with an educational dany from [employer]. Review of Systems Const Denies headache(s) Eyes Denies loss of vision ENT Denies vertigo, Denies dizziness, Denies headache(s) and Denies sore throat Card Denies chest pain, Denies leg edema and Denies lightheadedness Resp Denies cough, Denies hemoptysis and Denies wheezing GI Denies abdominal pain, Denies melena, Denies constipation, Denies diarrhea and Denies vomiting Denies urinary frequency, Denies dysuria and Denies urinary urgency Musc Denies arthralgias, Denies joint swelling, Denies numbness and Denies tingling Neuro Denies Abnormal speech present, Denies behavioral changes, Denies vertigo, Denies dizziness, Denies headache(s), Denies loss of vision, Denies memory loss, Denies numbness and Denies tingling Psych Denies anxiety, Denies behavioral changes, Denies depression, Denies memory loss and Denies panic attacks Ricki/Lymph Denies easy bleeding and Denies easy bruising Aller/Immun Denies wheezing Physical exam (Primary Care) Vital Signs: Last Vital Signs Temp 97.5 F 03/12/25 14:07 Pulse 82 03/12/25 14:07 BP 136/62 03/12/25 14:07 Pulse Ox 96 03/12/25 14:07 Oxygen Delivery Method Room Air 03/12/25 14:07 BMI result Body Mass Index 26.1 Tobacco/Smoking Status: Tobacco use Status Tobacco use date assessed 03/12/25 03/12/25 14:09 Patient Tobacco Use Status Never used Tobacco 03/12/25 14:08 e-Cigarette/Vaping Use Never Used 03/12/25 14:08 Thrive Assessment: Date of Thrive Assessment Date Thrive assessed 12/06/24 03/12/25 14:08 Currently or been in a relationship where the following occur: No concerns reported Const General: healthy appearing, no acute distress, alert and awake Nutritional Appearance: well nourished Orientation/consciousness: oriented to person, oriented to place and oriented to time HENMT Ears: TM's normal bilaterally General nose exam: Normal nasal mucous membranes and turbinates present Eyes Conjunctivae: conjunctivae normal Sclerae: sclerae normal Pupils: Equal, round and reactive pupils present Neck Neck: Yes no lymphadenopathy and Yes no JVD Thyroid: Thyroid normal Carotids: no bruits Resp Effort & Inspection: normal respiratory effort and not tachypneic Auscultation: no crackles, no rales, no rhonchi and no wheezes Cardio Rate: regular rate Rhythm: regular rhythm Heart sounds: no murmurs and normal S1 and S2 GI Palpation (GI): Soft to palpation, nontender, no hepatomegaly and no splenomegaly Auscultation: normal bowel sounds Skin General skin exam: no rashes or lesions noted and dry skin Neuro General: oriented to person, oriented to place and oriented to time Cranial nerves: Yes Equal, round and reactive pupils present Speech: No Abnormal speech present Gait exam (Neuro): Normal gait present Motor exam (neuro): no tremor noted Extrem Right upper extremity: full ROM Left upper extremity: full ROM Right lower extremity: full ROM; no edema Left lower extremity: full ROM; no edema Psych Mental Status: mental status grossly normal Speech and movement: Normal speech and movement present Affect: normal affect Attitude: cooperative Thought process: Normal thought process present Coding Level of Care Code Est Pt Level 4 (52703) Diagnoses Pre-op evaluation Z01.818 Age-related cataract of both eyes, unspecified age-related cataract type H25.9 Age-related cataract type: unspecified Cataract type: age-related Assessment & Plan Assessment & Plan (1) Pre-op evaluation: Code(s): Z01.818 - Encounter for other preprocedural examination Category: Medical Plan: Patient's most recent labs and vitals today stable. EKG stable has chronic left bundle-branch block. Patient is medically clear for needed cataract removal surgery. (2) Cataracts, bilateral: Code(s): H26.9 - Unspecified cataract Category: Medical Qualifiers: Age-related cataract type: unspecified Cataract type: age-related Qualified Code(s): H25.9 - Unspecified age-related cataract Plan: As per HPI patient is due for bilateral cataract removal in March of 2025 Orders: Orders ECG 12 lead EKG 03/19/25 Z01.818 - Encounter for other preprocedural examination Medications: New oxybutynin chloride ER 5 mg PO DAILY 30 tabs 1RF 30 days N39.41 - Urge incontinence Changed From lorazepam 0.5 mg PO DAILY 14 days PRN 14 tabs 1RF anxiety F41.1 - Generalized anxiety disorder To lorazepam 0.5 mg PO DAILY PRN 30 tabs 0RF anxiety 30 days F41.1 - Generalized anxiety disorder
== END 2025-03-12 14:38 | disposition home or self-care (01) ==
LOC: HO.HMCH 14:04
PROVIDERS: PCP Physician Assistant; Visit Provider Physician Assistant
DX: Z01.818 Encounter for other preprocedural examination (principal); H25.9 Unspecified age-related cataract

== ENCOUNTER → 2025-03-12 14:04 | Outpatient (BNVA) | payer MEDICARE, SELFPAY | PROVIDERS: PCP Physician Assistant; Visit Provider Physician Assistant | DX: Z01.818 Encounter for other preprocedural examination (principal); I10 Essential (primary) hypertension; I44.7 Left bundle-branch block, unspecified; E78.5 Hyperlipidemia, unspecified; F41.1 Generalized anxiety disorder; H26.9 Unspecified cataract; N39.41 Urge incontinence | CPT/HCPCS: 99212 ==

== ENCOUNTER → 2025-03-19 07:31 | Outpatient (REF) | payer MEDICARE, SELFPAY ==
--- NOTE | 2025-03-19 07:34 | ECG_ITS ---
Test Reason : preop Blood Pressure : */* mmHG Vent. Rate : 91 BPM Atrial Rate : 91 BPM P-R Int : 152 ms QRS Dur : 136 ms QT Int : 384 ms P-R-T Axes : 50 -40 105 degrees QTcB Int : 472 ms Normal sinus rhythm Left axis deviation Left bundle branch block Abnormal ECG When compared with ECG of 09-Jan-2010 07:06, Left bundle branch block Present Referred By: Sabino Ro Electronically Signed By: NADIR VILLA
== END ==
LOC: HO.CARD 07:31
PROVIDERS: PCP Physician Assistant; Visit Provider Physician Assistant
DX: Z01.818 Encounter for other preprocedural examination (principal)
CPT/HCPCS: 93005

== ENCOUNTER → 2025-03-19 07:34 | Outpatient (BNV) | payer MEDICARE, SELFPAY | PROVIDERS: PCP Physician Assistant; Visit Provider Internal Medicine | DX: I44.7 Left bundle-branch block, unspecified (principal) | CPT/HCPCS: 93010 ==

== ENCOUNTER 2025-05-27 09:44 | Outpatient (AMB) | payer MEDICARE, SELFPAY ==
[2025-05-27 09:49] VITALS: BP 122/68; PULSE 72; BMI 25.7
--- NOTE | 2025-05-27 09:49 | MHC.OFFVIS ---
Vital Signs 05/27/25 09:49 Height 5 ft 4 in Weight 149 lb 14.629 oz BMI 25.7 BP 122/68 Blood Pressure Location Lt brachial Position Sitting Pulse 72 Pulse Source Pulse Oximeter Intake Visit Reasons: 1 yr follow up Allergies sulfate Adverse Reaction (Unknown, Uncoded 03/12/25 14:21) skin irritant/rash Medication List - Last Reconciled 05/27/25 by Johnathan Schneider MD amlodipine 5 mg PO DAILY atorvastatin 10 mg PO DAILY calcium-magnesium 300-300 mg 1 tab PO DAILY cholecalciferol (vitamin D3) 25 mcg PO DAILY ezetimibe 10 mg PO DAILY lorazepam 0.5 mg PO DAILY PRN 30 days oxybutynin chloride ER 5 mg PO DAILY 30 days [Ramp As directed Duration-99 days] walker As directed HPI Comments Details: Antonieta returns for follow up regarding left bundle-branch block. She states she is generally doing fine. Has not had any clear-cut concerns like angina or shortness of breath or in fact anything cardiac sounding. She drinks wine quite regularly. Was drinking as much as 3 glasses of wine daily but she has cut back. Otherwise, doing fine. [facility] Medical History Essential hypertension HTN (hypertension) Surgical History Mallet finger of left hand History of D&C Family History Father Anxiety Hypertension Cancer Mother No problems noted. Brother No problems noted. Sister Leukemia Social History Housing: House Alcohol intake: current Alcohol intake frequency: 0-2 drinks per day Alcohol type: wine Patient Tobacco Use Status: Never used Tobacco e-Cigarette/Vaping Use: Never Used Second Hand Smoke Exposure: No Current occupational status: retired Cognitive needs: No Hearing needs: No Vision needs: Yes Review of Systems Const Denies weakness ENT Denies dizziness Card Denies chest pain, Denies chest pain with activity, Denies syncope, Denies rapid heart rate, Denies pedal edema, Denies edema, Denies leg edema, Denies lightheadedness, Denies palpitations, Denies dyspnea, Denies dyspnea on exertion and Denies orthopnea Resp Denies cough, Denies dyspnea and Denies dyspnea on exertion GI Denies hematochezia and Denies change in stool character Musc Denies abnormal gait, Denies muscle cramps, Denies muscle weakness, Denies numbness, Denies radiating pain into limb and Denies tingling Neuro Denies abnormal gait, Denies dizziness, Denies syncope, Denies numbness, Denies tingling and Denies weakness Endo Denies palpitations Physical Exam Vital Signs: Last Vital Signs Pulse 72 05/27/25 09:49 BP 122/68 05/27/25 09:49 BMI result Body Mass Index 25.7 Const General: comfortable and no acute distress Orientation/consciousness: patient oriented x3 HEENT Other: Unremarkable Head: Yes normal to inspection Neck Neck: Yes normal visual inspection Chest Chest palpation & inspection: normal inspection of the chest Resp Auscultation: clear to auscultation bilaterally Cardio Palpation: normal PMI Heart sounds: S1 normal heart sound present, S2 normal heart sound present, no gallops, no murmurs and no rubs GI Palpation (GI): Soft to palpation Back/Spine/Pelvis Other: unremarkable Skin General skin exam: no rashes or lesions noted Neuro General: patient oriented x3 Extrem General: Yes normal to inspection Psych Mental Status: mental status grossly normal Assessment & Plan Assessment & Plan (1) LBBB (left bundle branch block): Code(s): I44.7 - Left bundle-branch block, unspecified Category: Medical Plan: Stable. Pathophysiology discussed with patient. We will follow on EKGs for any progressive conduction system disease. (2) NICM (nonischemic cardiomyopathy): Code(s): I42.8 - Other cardiomyopathies Category: Medical Plan: Slightly variable readings on echocardiograms including 45-50% and 50-55%. Myocardial perfusion imaging was unremarkable. Can be followed on echocardiograms. Likely all related to left bundle-branch block. (3) Essential hypertension: Code(s): I10 - Essential (primary) hypertension Category: Medical Plan: Stable. On amlodipine. (4) Alcohol use: Code(s): Z78.9 - Other specified health status Category: Social Hx Plan: Has cut back a lot compared to before. Again discussed about this. Plan Discussion Notes I discussed with the patient the importance of reducing alcohol consumption due to her left bundle branch block, explaining that excessive intake could exacerbate her cardiac condition. We also reviewed her recent EKG findings, confirming the persistence of the left bundle branch block and the need for ongoing monitoring. I advised her to follow up regularly to monitor her cardiac health. Patient was informed and verbally consented to the use of an ambient scribe for clinic note documentation during this visit. Orders: Orders CA echo transthoracic complete 1 Year I42.8 - Other cardiomyopathies Patient Instructions: - Reduce alcohol consumption to prevent heart issues. - Follow up regularly for cardiac monitoring. - Contact us if any concerning cardiac symptoms like chest pain or shortness of breath. Coding Level of Care Code Est Pt Level 4 (50938) Complex EM visit Add On G2211 Diagnoses LBBB (left bundle branch block) I44.7 NICM (nonischemic cardiomyopathy) I42.8 Essential hypertension I10 Alcohol use Z78.9
== END 2025-05-27 10:08 | disposition home or self-care (01) ==
LOC: HO.HCS 09:45
PROVIDERS: PCP Physician Assistant; Visit Provider Internal Medicine
DX: I44.7 Left bundle-branch block, unspecified (principal); I42.8 Other cardiomyopathies; I10 Essential (primary) hypertension; Z78.9 Other specified health status
CPT/HCPCS: 99214; G2211

== ENCOUNTER → 2025-05-27 09:44 | Outpatient (BNVA) | payer MEDICARE, SELFPAY | PROVIDERS: PCP Physician Assistant; Visit Provider Internal Medicine | DX: I10 Essential (primary) hypertension (principal); I44.7 Left bundle-branch block, unspecified; I42.8 Other cardiomyopathies; F10.20 Alcohol dependence, uncomplicated; Z78.9 Other specified health status | CPT/HCPCS: 99212 ==